=== PATIENT | female | born 1955 | race Caucasian/White ===

== ENCOUNTER → 2016-06-28 | Outpatient (CLI) | payer BC ==
--- NOTE | 2016-06-28 10:16 | CR ---
EXAMINATION: Left knee HISTORY: Pain COMPARISON: 05/17/2016 TECHNIQUE: 2 views FINDINGS/IMPRESSION: There is no acute osseous abnormality, effusion, dislocation, or fracture. Bone mineralization and joint spaces appear normal. Early osteophyte formation is noted.
== END ==
LOC: MW.CHORTHO 07:51
PROVIDERS: ATTEND Physician Assistant
DX: M25.562 Pain in left knee (principal); M25.762 Osteophyte, left knee
CPT/HCPCS: 73560-26-LT; 73560-LT

== ENCOUNTER 2018-10-26 18:06 | Emergency (ER) | payer BC ==
--- NOTE | 2018-10-26 18:26 | EDM.PDOC ---
ED HPI GENERAL MEDICAL PROBLEM - General Chief Complaint: Neurological Problem Stated Complaint: HEAD Time Seen by Provider: 10/26/18 19:01 - History of Present Illness INITIAL COMMENTS - FREE TEXT/NARRATIVE: HISTORY AND PHYSICAL: History of present illness: Patient's a 63-year-old white female with history of meningioma who presents after a outpatient MRI demonstrated interval enlargement with mass effect and near effacement of the fourth ventricle she also downward central herniation of the cerebellar tonsils below the foramen magnum. Patient states this outpatient MRI was prompted by a recent episode on October 11 of headache was relatively severe and lasted approximately 4-5 days she states that has resolved but she does have some mild neck stiffness and discomfort she thought might of been due to exercise but has not had in the past. She's had no neurological symptoms otherwise inform of visual disturbance numbness weakness or other complaints. Review of systems: As per history of present illness and below otherwise all systems reviewed and negative. Past medical history: As per history of present illness and as reviewed below otherwise noncontributory. Surgical history: As per history of present illness and as reviewed below otherwise noncontributory. Social history: No reported history of drug or alcohol abuse. Family history: As per history of present illness and as reviewed below otherwise noncontributory. Physical exam: HEENT: Atraumatic, normocephalic, pupils reactive, negative for conjunctival pallor or scleral icterus, mucous membranes moist, throat clear, neck supple, nontender, trachea midline. Lungs: Clear to auscultation, breath sounds equal bilaterally, chest nontender. Heart: S1S2, regular, negative for clicks, rubs, or JVD. Abdomen: Soft, nondistended, nontender. Negative for masses or hepatosplenomegaly. Negative for costovertebral tenderness. Pelvis: Stable nontender. Genitourinary: Deferred. Rectal: Deferred. Extremities: Atraumatic, negative for cords or calf pain. Neurovascular unremarkable. Neuro: Awake, alert, oriented. Cranial nerves II through XII unremarkable. Cerebellum unremarkable. Motor and sensory unremarkable throughout. Exam nonfocal. Diagnostics: Outpatient MRI Therapeutics: To be determined Impression: #1 extra-axial mass with mass effect and associated cerebellar tonsillar herniation (meningioma) Definitive disposition and diagnosis as appropriate pending reevaluation and review of above. Headache Pain Score (Numeric/FACES): 2 - Related Data Allergies Allergy/AdvReac Type Severity Reaction Status Date / Time No Known Allergies Allergy Verified 10/26/18 18:16 Home Meds: Home Meds . [No Known Home Meds] 05/15/16 [History] Past Medical History - Past Health History Medical/Surgical History: Denies Medical/Surgical History Cardiovascular History: Reports: Other (See Below) Other Cardiovascular History: SVT - Infectious Disease History Infectious Disease History: Reports: Chicken Pox, Measles, Mumps Social & Family History - Family History Family Medical History: Noncontributory ED ROS GENERAL - Review of Systems Review Of Systems: ROS reveals no pertinent complaints other than HPI. ED EXAM, GENERAL - Physical Exam Exam: See Below (See dictation) Course - Vital Signs Text/Narrative:: Case was discussed with [facility] physician Dr. John neurosurgery was also contacted case was discussed with him currently reviewing MRI. Last Recorded V/S: Last Vital Signs Temp 36.9 C 10/26/18 18:12 Pulse 104 H 10/26/18 18:12 Resp 16 10/26/18 18:12 BP 152/76 H 10/26/18 18:12 Pulse Ox 98 10/26/18 18:12 Departure - Departure Time of Disposition: 19:01 Disposition: DC/Tfer to Acute Hospital 02 Condition: Good Clinical Impression: Meningioma, Cephalgia - Discharge Information Referrals: PCP,Unknown [Primary Care Provider] - Forms: ED Department Discharge
[2018-10-26 22:00] VITALS: BP 131/72
== END 2018-10-26 19:19 ==
LOC: MW.ED 18:06
DX: D32.0 Benign neoplasm of cerebral meninges (principal)
CPT/HCPCS: 99284

== ENCOUNTER 2019-02-16 05:34 | Emergency (ER) | payer BC ==
[2019-02-16] MEDS ORDERED: Sodium Chloride 0.9% 10 ML Syringe FLUSH PRN (05:46)
[2019-02-16] MEDS ORDERED: Sodium Chloride 0.9% 2.5 ML Syringe FLUSH PRN (05:46)
[2019-02-16] MEDS ORDERED: Sodium Chloride 0.9% 1,000 ML IV ONE (05:53)
[2019-02-16] MEDS ORDERED: Ketorolac 30 MG/ML SDV IVPUSH ONE (05:53)
--- NOTE | 2019-02-16 05:59 | EDM.PDOC ---
ED HPI GENERAL MEDICAL PROBLEM - General Chief Complaint: Abdominal Pain Stated Complaint: UPPER RT ABD PAIN Time Seen by Provider: 02/16/19 05:45 - History of Present Illness INITIAL COMMENTS - FREE TEXT/NARRATIVE: HISTORY AND PHYSICAL: History of present illness: The patient is a 63-year-old female with a history of A. fib which has resolved and a recent surgery for meningioma and parathyroidectomy for which she says she is doing very well with and presents with complaints of right upper quadrant pain that started last evening. The patient said that she ate apple high and a cookie last evening around 7 and started having the right upper quadrant pain around 10 PM. There was no fever chills nausea or vomiting and there is no radiation of the pain to the right lower quadrant the left side or to the flank. She tells me that she had a similar episode in this pain several weeks ago and it was just as intense. She did not get follow-up because it went away and she says it was in the exact same location and characteristics and occurred after eating fatty food. Yesterday she had a normal day without any systemic complaints or issues such as upper respiratory infection fever chills chest pain or shortness of breath and she has not had diarrhea black or bloody stools and has no history of peptic ulcer disease. She says that she took some Tylenol for the pain only. She rates the pain as a deep sharp pain that is underneath her right ribs. Review of systems: As per history of present illness and below otherwise all systems reviewed and negative. Past medical history: As per history of present illness and as reviewed below otherwise noncontributory. Surgical history: As per history of present illness and as reviewed below otherwise noncontributory. Social history: No reported history of drug or alcohol abuse. Family history: As per history of present illness and as reviewed below otherwise noncontributory. Physical exam: General: Well-developed well-nourished female who is nontoxic and vital signs are noted by me. She is moving easily in the ED without distress HEENT: Atraumatic, normocephalic, negative for conjunctival pallor or scleral icterus, mucous membranes moist, throat clear, neck supple, nontender, trachea midline. There is a scar at the anterior aspect of the base of the neck which is healing and there is no erythema or swelling Lungs: Clear to auscultation, breath sounds equal bilaterally, chest nontender. Heart: S1S2, regular rhythm and slightly tachycardic rate on my evaluation no overt murmurs Abdomen: Soft, nondistended, no sounds are normoactive and there is no tympany on percussion. There is very mild tenderness on deep palpation of the right upper quadrant but not in the epigastrium right flank or left abdomen and there is no right lower quadrant tenderness. Negative for masses or hepatosplenomegaly. Negative for costovertebral tenderness. Pelvis: Stable nontender. Genitourinary: Deferred. Rectal: Deferred. Extremities: Atraumatic, negative for cords or calf pain. Neurovascular unremarkable. Neuro: Awake, alert, oriented. Cranial nerves II through XII unremarkable. Cerebellum unremarkable. Motor and sensory unremarkable throughout. Exam nonfocal. Diagnostics: CBC CMP lactate amylase lipase UA with reflex EKG Therapeutics: IV O2 monitor IV fluids Toradol, patient like to defer narcotics at this time, Rei Discussed with the patient the urine results and she says that she has been told that she always has microscopic blood in her urine and she is not concerned about it. I have offered a CT scan for kidney stone and she says that the pain is only triggered by fatty foods and she would like to decline that at this time. She is aware that if the remainder of her blood work is normal that she can have imaging as an outpatient and she says the pain is improving and that is the plan that she would like to pursue. Impression: Right upper quadrant pain rule out biliary colic Definitive disposition and diagnosis as appropriate pending reevaluation and review of above. Right Upper Abdomen Pain Score (Numeric/FACES): 6 - Related Data Allergies Allergy/AdvReac Type Severity Reaction Status Date / Time No Known Allergies Allergy Verified 02/16/19 05:44 Home Meds: Home Meds . [No Known Home Meds] 05/15/16 [History] Past Medical History - Past Health History Medical/Surgical History: Denies Medical/Surgical History HEENT History: Reports: None Cardiovascular History: Reports: Other (See Below) Other Cardiovascular History: SVT Respiratory History: Reports: None Gastrointestinal History: Reports: None Genitourinary History: Reports: None DYE AND CHEMICAL COORDINATOR History: Reports: None Musculoskeletal History: Reports: None Neurological History: Reports: Other (See Below) Other Neuro History: Hx of meningioma Psychiatric History: Reports: None Endocrine/Metabolic History: Reports: Hyperparathyroidism Hematologic History: Reports: None Immunologic History: Reports: None Oncologic (Cancer) History: Reports: None Dermatologic History: Reports: None - Infectious Disease History Infectious Disease History: Reports: Chicken Pox - Past Surgical History Head Surgeries/Procedures: Reports: Craniotomy HEENT Surgical History: Reports: Adenoidectomy, Oral Surgery, Tonsillectomy Endocrine Surgical History: Reports: Parathyroidectomy Social & Family History - Family History Family Medical History: Noncontributory - Tobacco Use Smoking Status *Q: Never Smoker - Caffeine Use Caffeine Use: Reports: Coffee - Recreational Drug Use Recreational Drug Use: No ED ROS GENERAL - Review of Systems Review Of Systems: ROS reveals no pertinent complaints other than HPI. ED EXAM, GENERAL - Physical Exam Exam: See Below (See dictation) Course - Vital Signs Last Recorded V/S: Last Vital Signs Temp 36.4 C 02/16/19 05:41 Pulse 106 H 02/16/19 05:41 Resp 14 02/16/19 05:41 BP 152/73 H 02/16/19 05:41 Pulse Ox 97 02/16/19 06:05 - Orders/Labs/Meds Orders: Active Orders 24 hr Category Date Time Status Cardiac Monitoring [RC] . DIRECTED Care 02/16/19 05:46 Active EKG Documentation Completion [RC] STAT Care 02/16/19 05:46 Active Oxygen Therapy, ED [RC] ASDIRECTED Care 02/16/19 05:46 Active Pulse Oximetry [RC] ASDIRECTED Care 02/16/19 05:46 Active Sodium Chloride 0.9% [Normal Saline] 1,000 ml Med 02/16/19 05:53 Active IV STAT Sodium Chloride 0.9% [Saline Flush] Med 02/16/19 05:46 Active 10 ml FLUSH ASDIRECTED PRN Sodium Chloride 0.9% [Saline Flush] Med 02/16/19 05:46 Active 2.5 ml FLUSH ASDIRECTED PRN Saline Lock Insert [OM.PC] Stat Oth 02/16/19 05:46 Ordered Medication Orders Sodium Chloride (Normal Saline) 1,000 mls @ 999 mls/hr IV STAT ONE Stop: 02/16/19 06:53 Last Admin: 02/16/19 06:05 Dose: 999 mls/hr Sodium Chloride (Saline Flush) 10 ml FLUSH ASDIRECTED PRN PRN Reason: Keep Vein Open Last Admin: 02/16/19 06:12 Dose: 10 ml Sodium Chloride (Saline Flush) 2.5 ml FLUSH ASDIRECTED PRN PRN Reason: Keep Vein Open Last Admin: 02/16/19 06:12 Dose: 2.5 ml Labs: Laboratory Tests 02/16/19 02/16/19 02/16/19 Range/Units 05:54 06:05 06:05 WBC 7.70 (4.0-11.0) K/uL RBC 4.61 (4.30-5.90) M/uL Hgb 13.2 (12.0-16.0) g/dL Hct 39.4 (36.0-46.0) % MCV 85.5 (80.0-98.0) fL MCH 28.6 (27.0-32.0) pg MCHC 33.5 (31.0-37.0) g/dL RDW Std Deviation 40.0 (28.0-62.0) fl RDW Coeff of Daryn 13 (11.0-15.0) % Plt Count 220 (150-400) K/uL MPV 8.50 (7.40-12.00) fL Neut % (Auto) 81.4 H (48.0-80.0) % Lymph % (Auto) 14.3 L (16.0-40.0) % Stevens % (Auto) 3.5 (0.0-15.0) % Eos % (Auto) 0.5 (0.0-7.0) % Baso % (Auto) 0.3 (0.0-1.5) % Neut # (Auto) 6.3 H (1.4-5.7) K/uL Lymph # (Auto) 1.1 (0.6-2.4) K/uL Stevens # (Auto) 0.3 (0.0-0.8) K/uL Eos # (Auto) 0.0 (0.0-0.7) K/uL Baso # (Auto) 0.0 (0.0-0.1) K/uL Nucleated RBC % 0.0 /100WBC Nucleated RBCs # 0 K/uL Lactate (0.20-2.00) mmol/L Sodium 142 (136-145) mmol/L Potassium 3.8 (3.5-5.1) mmol/L Chloride 106 (98-107) mmol/L Carbon Dioxide 24.5 (21.0-32.0) mmol/L BUN 17 (7.0-18.0) mg/dL Creatinine 0.8 (0.6-1.0) mg/dL Est Cr Clr Drug Dosing 71.81 mL/min Estimated GFR (MDRD) > 60.0 ml/min Glucose 124 H (74-106) mg/dL Calcium 8.6 (8.5-10.1) mg/dL Total Bilirubin 0.3 (0.2-1.0) mg/dL AST 19 (15-37) IU/L ALT 33 (14-63) IU/L Alkaline Phosphatase 75 (46-116) U/L Total Protein 7.2 (6.4-8.2) g/dL Albumin 3.7 (3.4-5.0) g/dL Globulin 3.5 (2.6-4.0) g/dL Albumin/Globulin Ratio 1.1 (0.9-1.6) Amylase 84 (25-115) U/L Lipase 129 (73-393) U/L Urine Color YELLOW Urine Appearance SLT CLOUDY Urine pH 7.0 (5.0-8.0) Ur Specific Moca 1.015 (1.001-1.035) Urine Protein 30 H (NEGATIVE) mg/dL Urine Glucose (UA) NEGATIVE (NEGATIVE) mg/dL Urine Ketones TRACE H (NEGATIVE) mg/dL Urine Occult Blood LARGE H (NEGATIVE) Urine Nitrite NEGATIVE (NEGATIVE) Urine Bilirubin NEGATIVE (NEGATIVE) Urine Urobilinogen 0.2 (<2.0) EU/dL Ur Leukocyte Esterase NEGATIVE (NEGATIVE) Urine RBC 18-21 (0-2/HPF) Urine WBC 0-2 (0-5/HPF) Ur Epithelial Cells OCCASIONAL (NONE-FEW) Urine Bacteria RARE (NEGATIVE) Urine Mucus HEAVY (NONE-MOD) 02/16/19 Range/Units 06:05 WBC (4.0-11.0) K/uL RBC (4.30-5.90) M/uL Hgb (12.0-16.0) g/dL Hct (36.0-46.0) % MCV (80.0-98.0) fL MCH (27.0-32.0) pg MCHC (31.0-37.0) g/dL RDW Std Deviation (28.0-62.0) fl RDW Coeff of Daryn (11.0-15.0) % Plt Count (150-400) K/uL MPV (7.40-12.00) fL Neut % (Auto) (48.0-80.0) % Lymph % (Auto) (16.0-40.0) % Stevens % (Auto) (0.0-15.0) % Eos % (Auto) (0.0-7.0) % Baso % (Auto) (0.0-1.5) % Neut # (Auto) (1.4-5.7) K/uL Lymph # (Auto) (0.6-2.4) K/uL Stevens # (Auto) (0.0-0.8) K/uL Eos # (Auto) (0.0-0.7) K/uL Baso # (Auto) (0.0-0.1) K/uL Nucleated RBC % /100WBC Nucleated RBCs # K/uL Lactate 1.1 (0.20-2.00) mmol/L Sodium (136-145) mmol/L Potassium (3.5-5.1) mmol/L Chloride (98-107) mmol/L Carbon Dioxide (21.0-32.0) mmol/L BUN (7.0-18.0) mg/dL Creatinine (0.6-1.0) mg/dL Est Cr Clr Drug Dosing mL/min Estimated GFR (MDRD) ml/min Glucose (74-106) mg/dL Calcium (8.5-10.1) mg/dL Total Bilirubin (0.2-1.0) mg/dL AST (15-37) IU/L ALT (14-63) IU/L Alkaline Phosphatase (46-116) U/L Total Protein (6.4-8.2) g/dL Albumin (3.4-5.0) g/dL Globulin (2.6-4.0) g/dL Albumin/Globulin Ratio (0.9-1.6) Amylase (25-115) U/L Lipase (73-393) U/L Urine Color Urine Appearance Urine pH (5.0-8.0) Ur Specific Moca (1.001-1.035) Urine Protein (NEGATIVE) mg/dL Urine Glucose (UA) (NEGATIVE) mg/dL Urine Ketones (NEGATIVE) mg/dL Urine Occult Blood (NEGATIVE) Urine Nitrite (NEGATIVE) Urine Bilirubin (NEGATIVE) Urine Urobilinogen (<2.0) EU/dL Ur Leukocyte Esterase (NEGATIVE) Urine RBC (0-2/HPF) Urine WBC (0-5/HPF) Ur Epithelial Cells (NONE-FEW) Urine Bacteria (NEGATIVE) Urine Mucus (NONE-MOD) Meds: Medications Generic Name Dose Route Start Last Admin Trade Name Freq PRN Reason Stop Dose Admin Sodium Chloride 1,000 mls @ 999 mls/hr 02/16/19 05:53 02/16/19 06:05 Normal Saline IV 02/16/19 06:53 999 mls/hr STAT ONE Administration Sodium Chloride 10 ml 02/16/19 05:46 02/16/19 06:12 Saline Flush FLUSH 10 ml ASDIRECTED PRN Administration Keep Vein Open Sodium Chloride 2.5 ml 02/16/19 05:46 02/16/19 06:12 Saline Flush FLUSH 2.5 ml ASDIRECTED PRN Administration Keep Vein Open Discontinued Medications Generic Name Dose Route Start Last Admin Trade Name Freq PRN Reason Stop Dose Admin Hyoscyamine 0.125 mg 02/16/19 06:43 Hyomax-Sl SL 02/16/19 06:44 ONETIME ONE Ketorolac Tromethamine 30 mg 02/16/19 05:53 02/16/19 06:10 Toradol IVPUSH 02/16/19 05:54 30 mg ONETIME ONE Administration Departure - Departure Time of Disposition: 06:45 Disposition: Home, Self-Care 01 Condition: Good Clinical Impression: Abdominal pain Qualifiers: Abdominal location: right upper quadrant Qualified Code(s): R10.11 - Right upper quadrant pain - Discharge Information Referrals: PCP,None [Primary Care Provider] - Forms: ED Department Discharge Additional Instructions: The following information is given to patients seen in the emergency department who are being discharged to home. This information is to outline your options for follow-up care. We provide all patients seen in our emergency department with a follow-up referral. The need for follow-up, as well as the timing and circumstances, are variable depending upon the specifics of your emergency department visit. If you don't have a primary care physician on staff, we will provide you with a referral. We always advise you to contact your personal physician following an emergency department visit to inform them of the circumstance of the visit and for follow-up with them and/or the need for any referrals to a consulting specialist. The emergency department will also refer you to a specialist when appropriate. This referral assures that you have the opportunity for followup care with a specialist. All of these measure are taken in an effort to provide you with optimal care, which includes your followup. Under all circumstances we always encourage you to contact your private physician who remains a resource for coordinating your care. When calling for followup care, please make the office aware that this follow-up is from your recent emergency room visit. If for any reason you are refused follow-up, please contact the [facility] emergency department at and ask to speak to the emergency department charge nurse. [facility] Professional Building [address] [place] [address] Please eat a low-fat diet as we discussed and use medications as prescribed and as needed. These call and schedule a follow-up appointment for further testing of your gallbladder as we discussed and return to ER as needed and as discussed - My Orders Last 24 Hours: My Active Orders 02/16/19 05:46 Cardiac Monitoring [RC] . DIRECTED EKG Documentation Completion [RC] STAT Oxygen Therapy, ED [RC] ASDIRECTED Pulse Oximetry [RC] ASDIRECTED Sodium Chloride 0.9% [Saline Flush] 10 ml FLUSH ASDIRECTED PRN Sodium Chloride 0.9% [Saline Flush] 2.5 ml FLUSH ASDIRECTED PRN Saline Lock Insert [OM.PC] Stat 02/16/19 05:53 Sodium Chloride 0.9% [Normal Saline] 1,000 ml IV STAT - Assessment/Plan Last 24 Hours: My Active Orders 02/16/19 05:46 Cardiac Monitoring [RC] . DIRECTED EKG Documentation Completion [RC] STAT Oxygen Therapy, ED [RC] ASDIRECTED Pulse Oximetry [RC] ASDIRECTED Sodium Chloride 0.9% [Saline Flush] 10 ml FLUSH ASDIRECTED PRN Sodium Chloride 0.9% [Saline Flush] 2.5 ml FLUSH ASDIRECTED PRN Saline Lock Insert [OM.PC] Stat 02/16/19 05:53 Sodium Chloride 0.9% [Normal Saline] 1,000 ml IV STAT
[2019-02-16 06:40] LABS: BLOOD UREA NITROGEN,BUN 17 mg/dL (7.0-18.0); CARBON DIOXIDE,CO2 24.5 mmol/L (21.0-32.0); CHLORIDE,CL 106 mmol/L (98-107); GLUCOSE RANDOM 124 mg/dL (74-106); LIPASE 129 U/L (73-393); POTASSIUM,K 3.8 mmol/L (3.5-5.1); SODIUM,NA 142 mmol/L (136-145)
[2019-02-16] MEDS ORDERED: Hyoscyamine 0.125 MG Tab.SL SL ONE (06:43)
[2019-02-16 07:33] VITALS: BP 118/63; PULSE 85
== END 2019-02-16 07:17 | disposition home or self-care (01) ==
LOC: MW.ED 05:34
DX: R10.11 Right upper quadrant pain (principal)
CPT/HCPCS: 36415; 80053; 81001; 82150; 83605; 83690; 85025; 93005; 96361; 96374; 99284; A9270; J1885; J7040

== ENCOUNTER 2019-04-04 08:12 | Day surgery (SDC) | payer BC ==
[~2019-04-04 08:12] MED LIST: Dexamethasone 4 MG/ML 5 ML MDV ONE; Lidocaine 2% 5 ML SDV ONE; Meperidine PF 25 MG/ML Syringe IVPUSH PRN; Metoclopramide 10 MG/2 ML SDV ONE; Midazolam 1 MG/ML 2 ML SDV ONE; Propofol 200 MG/20 ML SDV ONE; Rocuronium 100 MG/10 ML Syringe ONE; ceFAZolin 2 GM in Premix Bag 1 BAG IV ONE; ceFAZolin/Dextrose,Iso-Osmotic 2 GM/50 ML Duplex Bag IV ONE; fentaNYL 100 MCG/2 ML SDV IVPUSH PRN; fentaNYL 100 MCG/2 ML SDV ONE
[2019-04-04] MEDS: Lactated Ringers 1,000 ML IV SCH (08:45)
--- NOTE | 2019-04-04 09:01 | PCM.PREANE ---
Preanesthetic Assessment - Anesthesia/Transfusion/Family Hx Anesthesia History: Prior Anesthesia Without Reaction Family History of Anesthesia Reaction: No Transfusion History: No Prior Transfusion(s) Intubation History: Unknown - Review of Systems General: No Symptoms Pulmonary: No Symptoms Cardiovascular: No Symptoms Gastrointestinal: No Symptoms Neurological: No Symptoms Other: Reports: None - Physical Assessment Vital Signs: Last Vital Signs Temp 36.8 C 04/04/19 08:30 Pulse 15 L 04/04/19 08:30 Resp 15 04/04/19 08:30 BP 144/66 H 04/04/19 08:30 Pulse Ox 97 04/04/19 08:30 Height: 5 ft 6 in Weight: 78.471 kg ASA Class: 3 Mental Status: Alert & Oriented x3 Airway Class: Mallampati = 2 Dentition: Reports: Normal Dentition Thyro-Mental Finger Breadths: 3 Mouth Opening Finger Breadths: 2 ROM/Head Extension: Full Lungs: Clear to Auscultation, Normal Respiratory Effort Cardiovascular: Regular Rate, Regular Rhythm - Lab Values: Laboratory Last Values Urine HCG, Qual NEGATIVE (NEGATIVE) 04/04/19 08:23 - Allergies Allergies/Adverse Reactions: Allergies Allergy/AdvReac Type Severity Reaction Status Date / Time No Known Allergies Allergy Verified 03/25/19 07:07 - Blood Blood Available: No - Anesthesia Plan Pre-Op Medication Ordered: None - Acknowledgements Anesthesia Type Planned: General Anesthesia Pt an Appropriate Candidate for the Planned Anesthesia: Yes Alternatives and Risks of Anesthesia Discussed w Pt/Guardian: Yes Pt/Guardian Understands and Agrees with Anesthesia Plan: Yes PreAnesthesia Questionnaire - Past Health History Medical/Surgical History: Denies Medical/Surgical History HEENT History: Reports: Other (See Below) Other HEENT History: wears glasses Cardiovascular History: Reports: Other (See Below) Other Cardiovascular History: hx proximal A-fib, resolved after parathyroidectomy. H/o meningeoma Respiratory History: Reports: None Gastrointestinal History: Reports: Cholelithiasis Genitourinary History: Reports: None MARINE SUPERINTENDENT History: Reports: None Musculoskeletal History: Reports: Fracture Other Musculoskeletal History: hx fx tib/fib Neurological History: Reports: Headaches, Chronic (temporal), Other (See Below) Other Neuro History: Hx of meningioma Psychiatric History: Reports: Bipolar Endocrine/Metabolic History: Reports: Hyperparathyroidism (2 out of 5 parathyroid glands removed 2 months ago) Hematologic History: Reports: None Immunologic History: Reports: None Oncologic (Cancer) History: Reports: None Dermatologic History: Reports: None - Infectious Disease History Infectious Disease History: Reports: Chicken Pox - Past Surgical History Head Surgeries/Procedures: Reports: Craniotomy (for removal of meningeoma 09/26) HEENT Surgical History: Reports: Adenoidectomy, Oral Surgery, Tonsillectomy Cardiovascular Surgical History: Reports: None Respiratory Surgical History: Reports: None GI Surgical History: Reports: Colonoscopy Female Surgical History: Reports: None Endocrine Surgical History: Reports: Parathyroidectomy (2 glands removed) Other Neurological Surgeries/Procedures: craniotomy for meninigioma Musculoskeletal Surgical History: Reports: None Dermatological Surgical History: Reports: None - SUBSTANCE USE Smoking Status *Q: Never Smoker Recreational Drug Use History: No - HOME MEDS Home Medications: Home Meds Calcium Carbonate/Vitamin D3 [Calcium 600 + Vit D Tablet] 1 tab PO BID 03/25/19 [History] Cyanocobalamin (Vitamin B12) [Vitamin B12] 1 tab PO DAILY 03/25/19 [History] Estazolam 0.5 tab PO BEDTIME PRN 03/25/19 [History] Hyoscyamine Sulfate 0.125 mg PO ASDIRECTED PRN 03/25/19 [History] traMADol HCl [Tramadol HCl] 1 tab PO ASDIRECTED PRN 03/25/19 [History] - CURRENT (IN HOUSE) MEDS Current Meds: Current Medications Fentanyl (Sublimaze) 50 mcg IVPUSH Q5M PRN PRN Reason: Pain Stop: 04/04/19 12:05 Lactated Ringer's (Ringers, Lactated) 1,000 mls @ 125 mls/hr IV ASDIRECTED CHRISTELLE Meperidine HCl (Demerol) 12.5 mg IVPUSH ONETIME PRN PRN Reason: Shivering Meperidine HCl (Demerol) 25 mg IVPUSH ONETIME PRN PRN Reason: Shivering Discontinued Medications Cefazolin Sodium/Dextrose (Ancef) Confirm Administered Dose 2 gm IV .STK-MED ONE Stop: 04/04/19 08:04 Dexamethasone (Dexamethasone) Confirm Administered Dose 20 mg .ROUTE .STK-MED ONE Stop: 04/04/19 07:39 Fentanyl (Sublimaze) Confirm Administered Dose 100 mcg .ROUTE .STK-MED ONE Stop: 04/04/19 07:39 Cefazolin Sodium/Dextrose 2 gm (/ Premix) 50 mls @ 100 mls/hr IV ONETIME ONE Stop: 03/25/19 09:58 Cefazolin Sodium/Dextrose 2 gm (/ Premix) 50 mls @ 100 mls/hr IV ONETIME ONE Stop: 04/02/19 11:05 Lidocaine (Xylocaine-Mpf 2%) Confirm Administered Dose 5 ml .ROUTE .STK-MED ONE Stop: 04/04/19 07:39 Metoclopramide HCl (Reglan) Confirm Administered Dose 10 mg .ROUTE .STK-MED ONE Stop: 04/04/19 07:39 Midazolam HCl (Versed 1 Mg/Ml) Confirm Administered Dose 2 mg .ROUTE .STK-MED ONE Stop: 04/04/19 07:39 Propofol (Diprivan 20 Ml) Confirm Administered Dose 200 mg .ROUTE .STK-MED ONE Stop: 04/04/19 07:39 Rocuronium [place] (Zemuron) Confirm Administered Dose 100 mg .ROUTE .STK-MED ONE Stop: 04/04/19 07:39
[2019-04-04] MEDS ORDERED: Bupivacaine 0.5% 30 ML SDV ONE (09:23)
[2019-04-04] MEDS ORDERED: HYDROmorphone 2 MG/ML Syringe ONE (10:00)
[2019-04-04] MEDS ORDERED: Neostigmine Methylsulfate 1 MG/ML 5 ML Syringe ONE (10:12)
[2019-04-04] MEDS ORDERED: Glycopyrrolate 0.2 MG/ML SDV ONE (10:12)
[2019-04-04] MEDS ORDERED: Ondansetron 4 MG/2 ML SDV ONE (10:12)
[2019-04-04] MEDS ORDERED: Ketorolac 30 MG/ML SDV ONE (10:39)
--- NOTE | 2019-04-04 11:06 | PCM.OPNOTE ---
- General Post-Op/Procedure Note Date of Surgery/Procedure: 04/04/19 Operative Procedure(s): Laparoscopic cholecystectomy Findings: Mildly distended gallbladder with some scant omental adhesions Pre Op Diagnosis: Symptomatic cholelithiasis Post-Op Diagnosis: Symptomatic cholelithiasis Anesthesia Technique: MAC Primary Surgeon: Maya Gutierres Fluid Replacement, Intraop: 1,000 Output, Urine Amount: 170 EBL in mLs: 10 Condition: Good
--- NOTE | 2019-04-04 11:24 | PCM.POSTAN ---
POST ANESTHESIA ASSESSMENT - MENTAL STATUS Mental Status: Alert, Oriented - VITAL SIGNS Vital Signs: Last Vital Signs Temp 36.3 C 04/04/19 11:01 Pulse 59 L 04/04/19 11:21 Resp 11 L 04/04/19 11:21 BP 127/63 04/04/19 11:21 Pulse Ox 93 L 04/04/19 11:21 - RESPIRATORY Respiratory Status: Respiratory Rate WNL, Airway Patent, O2 Saturation Stable - CARDIOVASCULAR CV Status: Pulse Rate WNL, Blood Pressure Stable - GASTROINTESTINAL GI Status: No Symptoms - PAIN Pain Score: 0 - POST OP HYDRATION Hydration Status: Adequate & Stable - OBSERVATIONS Free Text/Narrative:: No anesthesia problems
--- NOTE | 2019-04-04 11:54 | OR ---
SURGEON: MAYA GUTIERRES MD DATE OF PROCEDURE: 04/04/2019 PREOPERATIVE DIAGNOSIS: Symptomatic cholelithiasis. POSTOPERATIVE DIAGNOSIS: Symptomatic cholelithiasis. PROCEDURE PERFORMED: Laparoscopic cholecystectomy. PRIMARY SURGEON: Maya Gutierres MD. ANESTHESIA: General endotracheal anesthesia. FLUIDS: 1000 mL of crystalloid. ESTIMATED BLOOD LOSS: 10 mL. URINE OUTPUT: 170 mL. FINDINGS: A slightly distended gallbladder with a small amount of omental adhesions. COMPLICATIONS: None. INDICATIONS: The patient is a 63-year-old female who recently presented to my office with symptomatic cholelithiasis. I explained the need for cholecystectomy. We discussed the laparoscopic approach. Should I be unable to perform it safely, we would convert to open. I explained the risks including bleeding, infection, or damage to surrounding structures. She verbalized understanding and wishes to proceed. PROCEDURE IN DETAIL: The patient was brought into the OR and placed on the OR table in supine position. A time-out was completed verifying the patient's name, age, date of , allergies, and procedure to be performed. General endotracheal anesthesia was induced. A Peralta catheter was placed and the left arm was tucked to the patient's side. The patient was appropriately padded and strapped to the table. The abdomen was prepped and draped in usual standard fashion. I anesthetized the infraumbilical midline with 0.5% Marcaine plain. An 11 blade was used to make a 3 cm incision along this area. Cautery was used to dissect down to the level of the subcutaneous fat. I bluntly dissected down to the fascia and elevated with Galina's. I incised this sharply with Metzenbaum scissors. The posterior fascia and peritoneum were elevated with hemostats and incised sharply again. Entry into the abdomen was palpated digitally. Stay sutures were placed on either side of the fascia using 0 Vicryl sutures. A 12 mm Gene trocar was placed in the abdomen and it was insufflated. A 5 mm 30- degree scope was inserted, and I inspected the area underneath my initial trocar placement. No damage to surrounding structures was noted. The patient was placed into reverse Trendelenburg position and airplaned slightly to the left. 5 mm trocars were placed in the following locations under direct visualization; one in the epigastric area, one in the right flank, and one 2 fingerbreadths below the right subcostal margin in the midclavicular line. The dome of the gallbladder was grasped and elevated cranially. The infundibulum had some flimsy attachments to the overlying omentum. This was taken down using hook cautery. The infundibulum then was grasped and manipulated to begin dissection around my proximal gallbladder. Using a combination of blunt dissection and hook cautery, I was able to take down the tissue around the proximal gallbladder and identify my cystic duct and artery. The node of Calot was also identified. I cleared away one-third of the proximal cystic plate. Once my critical view was achieved, I doubly clipped and ligated the cystic duct and artery. The attachments of the gallbladder to the remainder of the cystic plate were taken down using hook cautery. A small rent was made in the gallbladder and bile was spilled in the abdomen. No stones appeared to come out. Once the gallbladder was removed from this area, it was placed in an Endo Catch bag and removed through the infraumbilical port site. My 12 mm port was then reinserted, and I inspected my operative field. It was irrigated with 1 L of normal saline, which was then suctioned out. The clips appeared to be in good position. Hemostasis was achieved and there was no evidence of any bile leakage. The 5 mm trocars were then removed under direct visualization and the abdomen allowed to desufflate. The 12 mm trocar was removed as well. The fascia at the infraumbilical port site was closed with interrupted 0 Vicryl sutures. The subcutaneous fat layer was closed with interrupted 3-0 Vicryl sutures. The skin was closed with a running 4-0 Monocryl stitch. The 5 mm trocar sites were closed with interrupted 4-0 Monocryl suture. Steri-Strips and sterile dressings were applied. The patient tolerated the procedure well and was taken to PACU in stable condition. All counts were complete and correct at the end of the case. DIPIKA BREWER /[id number]
[2019-04-04 12:44] VITALS: BP 113/57; PULSE 64
--- NOTE | 2019-04-04 12:54 | PCM48HPAN ---
Post Anesthesia Note - EVALUATION WITHIN 48HRS OF ANESTHETIC Vital Signs in Normal Range: Yes Patient Participated in Evaluation: Yes Respiratory Function Stable: Yes Airway Patent: Yes Cardiovascular Function Stable: Yes Hydration Status Stable: Yes Pain Control Satisfactory: Yes Nausea and Vomiting Control Satisfactory: Yes Mental Status Recovered: Yes Vital Signs: Last Vital Signs Temp 35.9 C 04/04/19 11:30 Pulse 64 04/04/19 12:30 Resp 16 04/04/19 12:30 BP 113/57 L 04/04/19 12:30 Pulse Ox 94 L 04/04/19 12:30 - COMMENTS/OBSERVATIONS Free Text/Narrative:: No anesthesia problems
== END 2019-04-04 13:22 | disposition home or self-care (01) ==
LOC: MW.SDS 08:12
PROVIDERS: ATTEND Surgery
DX: K80.10 Calculus of gallbladder with chronic cholecystitis without obstruction (principal); K66.0 Peritoneal adhesions (postprocedural) (postinfection); F31.9 Bipolar disorder, unspecified; E78.00 Pure hypercholesterolemia, unspecified; E21.3 Hyperparathyroidism, unspecified; I48.0 Paroxysmal atrial fibrillation; Z79.899 Other long term (current) drug therapy
CPT/HCPCS: 81025; J0690; J1100; J1170; J1885; J2001; J2250; J2405; J2704; J2765; J3010; J3490; J7120

== ENCOUNTER 2019-12-30 14:42 | Inpatient (IN) | payer BC ==
[2019-12-30] MEDS ORDERED: Sodium Chloride 0.9% 2.5 ML Syringe FLUSH PRN (16:16)
[2019-12-30] MEDS ORDERED: Morphine 2 MG/ML SYRINGE IVPUSH PRN (16:16)
[2019-12-30] MEDS ORDERED: Sodium Chloride 0.9% 1,000 ML IV ONE ×2 (16:52→16:53)
--- NOTE | 2019-12-30 16:56 | PCM.HP.2 ---
H&P History of Present Illness - General Date of Service: 12/30/19 Admit Problem/Dx: Admission Diagnosis/Problem Admission Diagnosis/Problem Diverticulitis of intestine with abscess - History of Present Illness Initial Comments - Free Text/Narative: Patient is a 64 year old female with PMH of paroxysmal Afib who presented to her PCP office today with abdominal pain. current to the patient, she started developing abdominal discomfort and constipation around December 20. She tried OTC laxatives with no results initially but later she developed watery diarrhea which she attributed to laxative use. Patient states that on Monday she started feeling febrile and her abdominal pain started getting worse. so today she went to her primary care office where she got the CAT scan of her abdomen/ pelvis which showed thickening of the sigmoid colon with an intracolonic abscess. She has had a colonoscopy in the past but is due for one next year. She denies nausea and vomiting. She had COVID testing this morning which was negative. Her CBC showed a leukocytosis with a left shift, she was slightly tachycardic, la ctic acid was obtained in the clinic which was negative. The pressure was on the softer side which per patient is here normal. She was admitted to the Hospital for further management. - Related Data Allergies/Adverse Reactions: Allergies Allergy/AdvReac Type Severity Reaction Status Date / Time No Known Allergies Allergy Verified 03/25/19 07:07 Home Medications: Home Meds Calcium Carbonate/Vitamin D3 [Calcium 600 + Vit D Tablet] 1 tab PO BID 03/25/19 [History] Cyanocobalamin (Vitamin B12) [Vitamin B12] 1 tab PO DAILY 03/25/19 [History] Estazolam 0.5 tab PO BEDTIME PRN 03/25/19 [History] Hyoscyamine Sulfate 0.125 mg PO ASDIRECTED PRN 03/25/19 [History] traMADol HCl [Tramadol HCl] 1 tab PO ASDIRECTED PRN 03/25/19 [History] Past Medical History - Past Health History Medical/Surgical History: Denies Medical/Surgical History HEENT History: Reports: Other (See Below) Other HEENT History: wears glasses Cardiovascular History: Reports: Other (See Below) Other Cardiovascular History: hx proximal A-fib, resolved after parathyroidectomy. H/o meningeoma Respiratory History: Reports: None Gastrointestinal History: Reports: Cholelithiasis Genitourinary History: Reports: None UNDERPRESSER HAND History: Reports: None Musculoskeletal History: Reports: Fracture Other Musculoskeletal History: hx fx tib/fib Neurological History: Reports: Headaches, Chronic, Other (See Below) Other Neuro History: Hx of meningioma Psychiatric History: Reports: Bipolar Endocrine/Metabolic History: Reports: Hyperparathyroidism Hematologic History: Reports: None Immunologic History: Reports: None Oncologic (Cancer) History: Reports: None Dermatologic History: Reports: None - Infectious Disease History Infectious Disease History: Reports: Chicken Pox - Past Surgical History Head Surgeries/Procedures: Reports: Craniotomy HEENT Surgical History: Reports: Adenoidectomy, Oral Surgery, Tonsillectomy Cardiovascular Surgical History: Reports: None Respiratory Surgical History: Reports: None GI Surgical History: Reports: Colonoscopy Female Surgical History: Reports: None Endocrine Surgical History: Reports: Parathyroidectomy Other Neurological Surgeries/Procedures: craniotomy for meninigioma Musculoskeletal Surgical History: Reports: None Dermatological Surgical History: Reports: None Social & Family History - Family History Family Medical History: Noncontributory - Caffeine Use Caffeine Use: Reports: Coffee H&P Review of Systems - Review of Systems: Review Of Systems: See Below General: Reports: Fever, Malaise, Weakness, Fatigue Pulmonary: Denies: Shortness of Breath, Wheezing, Pleuritic Chest Pain Cardiovascular: Denies: Chest Pain, Palpitations, Dyspnea on Exertion, Orthopnea Gastrointestinal: Reports: Abdominal Pain, Anorexia, Constipation, Decreased Appetite, Nausea. Denies: Bloody Stool, Vomiting Genitourinary: Denies: Dysuria, Frequency, Burning, Pain Musculoskeletal: Denies: Neck Pain, Shoulder Pain, Arm Pain, Back Pain Skin: Denies: Cyanosis, Jaundice, Mottled, Pallor Psychiatric: Denies: Confusion, Depression Neurological: Denies: Confusion, Dizziness Hematologic/Lymphatic: Denies: Anemia, Easy Bleeding Exam - Exam Exam: See Below - Exam General: Alert, Oriented Neck: Supple, Trachea Midline Lungs: Clear to Auscultation, Normal Respiratory Effort Cardiovascular: Normal S1, Normal S2, Irregular Rhythm, Tachycardia GI/Abdominal Exam: Normal Bowel Sounds, Soft, No Distention, No Mass, Tender - Patient Data Lab Results Last 24 hrs: Laboratory Results - last 24 hr 12/30/19 Range/Units 12:56 WBC 14.60 H (4.0-11.0) K/uL RBC 4.43 (4.30-5.90) M/uL Hgb 12.8 (12.0-16.0) g/dL Hct 39.1 (36.0-46.0) % MCV 88.3 (80.0-98.0) fL MCH 28.9 (27.0-32.0) pg MCHC 32.7 (31.0-37.0) g/dL RDW Std Deviation 40.2 (28.0-62.0) fl RDW Coeff of Daryn 13 (11.0-15.0) % Plt Count 415 H (150-400) K/uL MPV 8.70 (7.40-12.00) fL Neut % (Auto) 83.5 H (48.0-80.0) % Lymph % (Auto) 8.3 L (16.0-40.0) % [place] % (Auto) 7.9 (0.0-15.0) % Eos % (Auto) 0.1 (0.0-7.0) % Baso % (Auto) 0.2 (0.0-1.5) % Neut # (Auto) 12.2 H (1.4-5.7) K/uL Lymph # (Auto) 1.2 (0.6-2.4) K/uL [place] # (Auto) 1.2 H (0.0-0.8) K/uL Eos # (Auto) 0.0 (0.0-0.7) K/uL Baso # (Auto) 0.0 (0.0-0.1) K/uL Nucleated RBC % 0.0 /100WBC Nucleated RBCs # 0 K/uL Result Diagrams: 12/30/19 12:56 - Problem List (1) Afib SNOMED Code(s): 16261130 ICD Code: I48.91 - UNSPECIFIED ATRIAL FIBRILLATION Status: Acute Current Visit: Yes (2) Diverticulitis SNOMED Code(s): 337377059 ICD Code: K57.92 - DVTRCLI OF INTEST, PART UNSP, W/O PERF OR ABSCESS W/O BLEED Status: Acute Current Visit: Yes (3) Abdominal pain SNOMED Code(s): 31284995 ICD Code: R10.9 - UNSPECIFIED ABDOMINAL PAIN Status: Acute Current Visit: No Qualifiers: Abdominal location: right upper quadrant Qualified Code(s): R10.11 - Right upper quadrant pain Problem List Initiated/Reviewed/Updated: Yes Orders Last 24hrs: Active Orders 24 hr Category Date Time Status Patient Status [ADT] Routine ADT 12/30/19 16:16 Active Antiembolic Devices [RC] PER UNIT ROUTINE Care 12/30/19 16:17 Active Communication Order [RC] PER UNIT ROUTINE Care 12/30/19 16:19 Active EKG 12 Lead [EKG Documentation Completion] [RC] STAT Care 12/30/19 16:52 Active Intake and Output [RC] QSHIFT Care 12/30/19 16:17 Active Notify Provider Consults [RC] ASDIRECTED Care 12/30/19 16:18 Active Oxygen Therapy [RC] PRN Care 12/30/19 16:16 Active Telemetry Monitoring [Cardiac Monitoring] [RC] . Care 12/30/19 16:20 Active DIRECTED Up With Assistance [RC] ASDIRECTED Care 12/30/19 16:16 Active VTE/DVT Education [RC] PER UNIT ROUTINE Care 12/30/19 16:16 Active Vital Signs [RC] Q4H Care 12/30/19 16:16 Active Consult to Physician [CONS] Routine Cons 12/30/19 16:16 Active Nothing Per Oral Diet [DIET] Diet 12/31/19 Breakfast Active CBC WITH AUTO DIFF [HEME] AM Lab 12/31/19 05:11 Ordered CBC WITH AUTO DIFF [HEME] AM Lab 01/01/20 05:11 Ordered COMPREHENSIVE METABOLIC PN,CMP [CHEM] AM Lab 12/31/19 05:11 Ordered COMPREHENSIVE METABOLIC PN,CMP [CHEM] AM Lab 01/01/20 05:11 Ordered CULTURE BLOOD [BC] Stat Lab 12/30/19 16:18 Ordered CULTURE BLOOD [BC] Stat Lab 12/30/19 16:18 Ordered TROPONIN I [CHEM] Routine Lab 12/30/19 16:54 Ordered Morphine Med 12/30/19 16:16 Active 2 mg IVPUSH Q2H PRN Ondansetron [Zofran] Med 12/30/19 16:16 Active 4 mg IVPUSH Q4H PRN Piperacillin/Tazobactam [Piperacil-Tazobact] 4.5 gm Med 12/30/19 16:30 Active Sodium Chloride 0.9% [Normal Saline] 100 ml IV Q6H Sodium Chloride 0.9% [Normal Saline] 1,000 ml Med 12/30/19 16:52 Ordered IV .Bolus Sodium Chloride 0.9% [Normal Saline] 1,000 ml Med 12/30/19 16:30 Active IV Q8H Sodium Chloride 0.9% [Saline Flush] Med 12/30/19 16:16 Active 2.5 ml FLUSH ASDIRECTED PRN Blood Culture x2 Reflex Set [OM.PC] Stat Ot 12/30/19 16:16 Ordered Saline Lock Insert [OM.PC] Routine Oth 12/30/19 16:16 Ordered Sequential Compression Device [OM.PC] Per Unit Routine Oth 12/30/19 16:17 Ordered Resuscitation Status Routine Resus Stat 12/30/19 16:16 Ordered Medication Orders Sodium Chloride (Normal Saline) 1,000 mls @ 125 mls/hr IV Q8H CHRISTELLE Piperacillin Sod/Tazobactam (Sod 4.5 gm/ Sodium Chloride) 100 mls @ 100 mls/hr IV Q6H CHRISTELLE Sodium Chloride (Normal Saline) 1,000 mls @ 999 mls/hr IV .Bolus ONE Stop: 12/30/19 17:52 Morphine Sulfate (Morphine) 2 mg IVPUSH Q2H PRN PRN Reason: Pain (severe 7-10) Stop: 12/31/19 16:17 Ondansetron HCl (Zofran) 4 mg IVPUSH Q4H PRN PRN Reason: Pain Sodium Chloride (Saline Flush) 2.5 ml FLUSH ASDIRECTED PRN PRN Reason: Keep Vein Open Assessment/Plan Comment:: Patient is a 64-year-old female admitted for intracolonic abscess Start patient on IV Zosyn keep patient nothing by mouth except ice chips pain control with IV morphine Obtain blood cultures Plan CBC BMP monitor replete electrolytes as needed patient was found to be in A. fib upon placing her on telemetry which resolved with IV fluid bolus Will check a magnesium and phosphorus will continue to monitor surgery on board, appreciate their recommendations
[2019-12-30] MEDS: Piperacillin/Tazobactam 4.5 GM in Sodium Chloride 0.9% 100 ML IV SCH ×2 (17:31→22:38)
--- NOTE | 2019-12-30 17:40 | PCM.CONS ---
H&P History of Present Illness - General Date of Service: 12/30/19 Admit Problem/Dx: Admission Diagnosis/Problem Admission Diagnosis/Problem Diverticulitis of intestine with abscess Source of Information: Patient History Limitations: Reports: No Limitations - History of Present Illness Initial Comments - Free Text/Narative: Patient is a 64 year old female who presented to her PCP office today with abdominal pain. She first developed abdominal pain and constipation on December 20. She tried OTC laxatives with no results. Eventually she developed watery diarrhea. Last Monday she developed a fever and increasing abdominal pain. She has had a colonoscopy in the past but is due for one next year. She denies nausea and vomiting. She had COVID testing this morning which was negative. Her CBC showed a leukocytosis with a left shift. CT abdomen pelvis showed thickening of the sigmoid colon with an intracolonic abscess. She was admitted to the hospitalists service. - Related Data Allergies/Adverse Reactions: Allergies Allergy/AdvReac Type Severity Reaction Status Date / Time No Known Allergies Allergy Verified 03/25/19 07:07 Home Medications: Home Meds Calcium Carbonate/Vitamin D3 [Calcium 600 + Vit D Tablet] 1 tab PO BID 03/25/19 [History] Cyanocobalamin (Vitamin B12) [Vitamin B12] 1 tab PO DAILY 03/25/19 [History] Estazolam 0.5 tab PO BEDTIME PRN 03/25/19 [History] Hyoscyamine Sulfate 0.125 mg PO ASDIRECTED PRN 03/25/19 [History] traMADol HCl [Tramadol HCl] 1 tab PO ASDIRECTED PRN 03/25/19 [History] Past Medical History - Past Health History Medical/Surgical History: Denies Medical/Surgical History HEENT History: Reports: Other (See Below) Other HEENT History: wears glasses Cardiovascular History: Reports: Other (See Below) Other Cardiovascular History: hx proximal A-fib, resolved after parathyroidecto my. H/o meningeoma Respiratory History: Reports: None Gastrointestinal History: Reports: Cholelithiasis Genitourinary History: Reports: None METER REPAIRER History: Reports: None Musculoskeletal History: Reports: Fracture Other Musculoskeletal History: hx fx tib/fib Neurological History: Reports: Headaches, Chronic, Other (See Below) Other Neuro History: Hx of meningioma Psychiatric History: Reports: Bipolar Endocrine/Metabolic History: Reports: Hyperparathyroidism Hematologic History: Reports: None Immunologic History: Reports: None Oncologic (Cancer) History: Reports: None Dermatologic History: Reports: None - Infectious Disease History Infectious Disease History: Reports: Chicken Pox - Past Surgical History Head Surgeries/Procedures: Reports: Craniotomy HEENT Surgical History: Reports: Adenoidectomy, Oral Surgery, Tonsillectomy Cardiovascular Surgical History: Reports: None Respiratory Surgical History: Reports: None GI Surgical History: Reports: Colonoscopy Female Surgical History: Reports: None Endocrine Surgical History: Reports: Parathyroidectomy Other Neurological Surgeries/Procedures: craniotomy for meninigioma Musculoskeletal Surgical History: Reports: None Dermatological Surgical History: Reports: None Social & Family History - Family History Family Medical History: Noncontributory - Caffeine Use Caffeine Use: Reports: Coffee H&P Review of Systems - Review of Systems: Review Of Systems: Comprehensive ROS is negative, except as noted in HPI. Exam - Exam Exam: See Below - Vital Signs Vital Signs: Last Vital Signs Temp 37.2 C 12/30/19 17:00 Pulse 101 H 12/30/19 17:00 Resp 16 12/30/19 17:00 BP 104/63 12/30/19 17:00 Pulse Ox 98 12/30/19 17:00 Weight: 77.02 kg - Exam General: Alert, Oriented HEENT: Conjunctiva Clear, Mucosa Moist & [place], Posterior Pharynx Clear Neck: Trachea Midline Lungs: Clear to Auscultation, Normal Respiratory Effort Cardiovascular: Irregular Rhythm (atrial fibrillation ) GI/Abdominal Exam: Soft, No Distention, No Mass, Other (mild tenderness to deep palpation in the left lower quardrant/suprapubic area ) Back Exam: Normal Inspection, Full Range of Motion Extremities: Normal Inspection Skin: Warm, Dry, Intact Neuro Extensive - Mental Status: Alert, Oriented x3 Psychiatric: Alert, Normal Affect, Normal Mood - Patient Data Lab Results Last 24 hrs: Laboratory Results - last 24 hr 12/30/19 Range/Units 12:56 WBC 14.60 H (4.0-11.0) K/uL RBC 4.43 (4.30-5.90) M/uL Hgb 12.8 (12.0-16.0) g/dL Hct 39.1 (36.0-46.0) % MCV 88.3 (80.0-98.0) fL MCH 28.9 (27.0-32.0) pg MCHC 32.7 (31.0-37.0) g/dL RDW Std Deviation 40.2 (28.0-62.0) fl RDW Coeff of Daryn 13 (11.0-15.0) % Plt Count 415 H (150-400) K/uL MPV 8.70 (7.40-12.00) fL Neut % (Auto) 83.5 H (48.0-80.0) % Lymph % (Auto) 8.3 L (16.0-40.0) % [place] % (Auto) 7.9 (0.0-15.0) % Eos % (Auto) 0.1 (0.0-7.0) % Baso % (Auto) 0.2 (0.0-1.5) % Neut # (Auto) 12.2 H (1.4-5.7) K/uL Lymph # (Auto) 1.2 (0.6-2.4) K/uL [place] # (Auto) 1.2 H (0.0-0.8) K/uL Eos # (Auto) 0.0 (0.0-0.7) K/uL Baso # (Auto) 0.0 (0.0-0.1) K/uL Nucleated RBC % 0.0 /100WBC Nucleated RBCs # 0 K/uL Result Diagrams: 12/30/19 12:56 Sepsis Event Note - Focused Exam Vital Signs: Vital Signs Temp Pulse Resp BP Pulse Ox 12/30/19 17:00 37.2 C 101 H 16 104/63 98 Consult PN Assessment/Plan Procedures: Procedures ASSAY OF AMYLASE (02/16/19) ASSAY OF CALCIUM (01/28/19) ASSAY OF CALCIUM IN URINE (10/08/18) ASSAY OF CREATININE (01/28/19) ASSAY OF LACTIC ACID (02/16/19) ASSAY OF LIPASE (02/16/19) ASSAY OF MAGNESIUM (09/26/18) ASSAY OF PARATHORMONE (08/15/19) ASSAY OF PHOSPHORUS (01/28/19) ASSAY OF TROPONIN QUANT (01/19/18) ASSAY OF URINE CREATININE (10/08/18) ASSAY OF URINE SODIUM (10/08/18) ASSAY THYROID STIM HORMONE (07/12/18) BREAST TOMOSYNTHESIS BI (09/11/19) CARDIOVASCULAR STRESS TEST (03/07/18) COMP SCREEN MAMMOGRAM ADD-ON (06/09/15) COMPLETE CBC AUTOMATED (06/30/14) COMPLETE CBC W/AUTO DIFF WBC (02/16/19) COMPREHEN METABOLIC PANEL (08/15/19) CULTURE AEROBIC IDENTIFY (12/04/13) DXA BONE DENSITY AXIAL (09/11/19) ECHO EXAM OF ABDOMEN (03/04/19) ELECTROCARDIOGRAM TRACING (02/16/19) EMERGENCY DEPT VISIT (02/16/19) EMERGENCY DEPT VISIT (01/19/18) EMERGENCY DEPT VISIT (05/15/16) GLYCOSYLATED HEMOGLOBIN TEST (08/15/19) HPV HIGH-RISK TYPES (07/11/18) HT MUSCLE IMAGE SPECT MULT (03/07/18) HYDRATE IV INFUSION ADD-ON (02/16/19) INFLUENZA ASSAY W/OPTIC (05/11/16) LAPAROSCOPIC CHOLECYSTECTOMY (04/04/19) LIPID PANEL (08/15/19) MAMMOGRAM SCREENING (08/01/13) MANUAL THERAPY 1/> REGIONS (06/05/19) MICROBE SUSCEPTIBLE KELLY (12/04/13) MRI BRAIN STEM W/O & W/DYE (02/04/19) MRI JNT OF LWR EXTRE W/O DYE (05/17/16) PROTHROMBIN TIME (01/19/18) PT EVAL LOW COMPLEX 20 MIN (06/05/19) PT EVALUATION (08/05/14) ROUTINE VENIPUNCTURE (08/15/19) SCR MAMMO BI INCL CAD (09/11/19) THER/PROPH/DIAG INJ IV PUSH (02/16/19) THERAPEUTIC EXERCISES (06/05/19) TISSUE EXAM BY PATHOLOGIST (04/04/19) TTE W/DOPPLER COMPLETE (01/23/18) URINALYSIS AUTO W/SCOPE (02/16/19) URINE BACTERIA CULTURE (12/04/13) URINE TEST (04/04/19) US EXAM OF HEAD AND NECK (09/11/19) VIT D 1 25-DIHYDROXY (06/30/14) VITAMIN D 25 HYDROXY (08/15/19) X-RAY EXAM CHEST 1 VIEW (01/19/18) X-RAY EXAM OF ANKLE (05/15/16) X-RAY EXAM OF HAND (05/15/16) X-RAY EXAM OF KNEE 1 OR 2 (06/28/16) X-RAY EXAM OF KNEE 3 (04/04/17) X-RAY EXAM OF LOWER LEG (05/15/16) X-RAY EXAM OF SHOULDER (05/09/19) (1) Diverticulitis SNOMED Code(s): 555939656 Code(s): K57.92 - DVTRCLI OF INTEST, PART UNSP, W/O PERF OR ABSCESS W/O BLEED Current Visit: Yes Problem List Initiated/Reviewed/Updated: Yes Plan: The patient and I discussed the pathophysiology of diverticulitis. Given her intracolonic abscess, she will need to be on IV antibiotics. She has no signs of peritonitis so no need for surgical intervention at this time. She should be npo (other than ice chips and sips with meds) and be given IVF. I discussed her case with the hospitalist who will treat her atrial fibrillation. Will continue to follow. Please call with any questions or concerns.
[2019-12-30] MEDS: Sodium Chloride 0.9% 1,000 ML IV SCH (18:39)
[2019-12-30] MEDS: Acetaminophen 500 MG Tab PO PRN (20:27)
[2019-12-31] MEDS: Acetaminophen 500 MG Tab PO PRN ×4 (00:34→17:22)
[2019-12-31] MEDS: Sodium Chloride 0.9% 1,000 ML IV SCH ×3 (03:48→21:39)
[2019-12-31] MEDS: Piperacillin/Tazobactam 4.5 GM in Sodium Chloride 0.9% 100 ML IV SCH ×4 (03:49→21:33)
[2019-12-31 06:12] LABS: BLOOD UREA NITROGEN,BUN 12 mg/dL (7.0-18.0); CARBON DIOXIDE,CO2 22.4 mmol/L (21.0-32.0); CHLORIDE,CL 109 mmol/L (98-107); GLUCOSE RANDOM 79 mg/dL (74-106); POTASSIUM,K 3.7 mmol/L (3.5-5.1); SODIUM,NA 143 mmol/L (136-145)
[2019-12-31] MEDS: Enoxaparin 40 MG/0.4 ML Syringe SUBCUT SCH (10:17)
[2019-12-31] MEDS: Metoprolol Succinate 25 MG Tab.ER PO SCH (10:17)
--- NOTE | 2019-12-31 11:53 | PCM.PN ---
- General Info Date of Service: 12/31/19 Admission Dx/Problem (Free Text): Admission Diagnosis/Problem Admission Diagnosis/Problem Diverticulitis of intestine with abscess Subjective Update: Patient feeling better today. No fever chills nausea vomiting. - Review of Systems General: Denies: Fever, Weakness, Fatigue Pulmonary: Denies: Shortness of Breath, Pleuritic Chest Pain Gastrointestinal: Reports: Abdominal Pain (improved ), Flatus. Denies: Decreased Appetite, Diarrhea, Difficulty Swallowing, Nausea, Vomiting Genitourinary: Denies: Frequency, Burning, Pain Musculoskeletal: Denies: Neck Pain, Shoulder Pain, Arm Pain Skin: Denies: Cyanosis, Jaundice, Mottled - Patient Data Vitals - Most Recent: Last Vital Signs Temp 37.1 C 12/31/19 07:11 Pulse 86 12/31/19 10:17 Resp 16 12/31/19 07:11 BP 111/56 L 12/31/19 10:17 Pulse Ox 98 12/31/19 07:11 Weight - Most Recent: 77.02 kg I&O - Last 24 Hours: Intake & Output 12/30/19 12/31/19 12/31/19 22:59 06:59 14:59 Intake Total 1100 60 Output Total 200 820 Balance 900 -760 Lab Results Last 24 Hours: Laboratory Results - last 24 hr 12/30/19 12/30/19 12/30/19 Range/Units 12:56 16:49 16:49 WBC 14.60 H (4.0-11.0) K/uL RBC 4.43 (4.30-5.90) M/uL Hgb 12.8 (12.0-16.0) g/dL Hct 39.1 (36.0-46.0) % MCV 88.3 (80.0-98.0) fL MCH 28.9 (27.0-32.0) pg MCHC 32.7 (31.0-37.0) g/dL RDW Std Deviation 40.2 (28.0-62.0) fl RDW Coeff of Daryn 13 (11.0-15.0) % Plt Count 415 H (150-400) K/uL MPV 8.70 (7.40-12.00) fL Neut % (Auto) 83.5 H (48.0-80.0) % Lymph % (Auto) 8.3 L (16.0-40.0) % [place] % (Auto) 7.9 (0.0-15.0) % Eos % (Auto) 0.1 (0.0-7.0) % Baso % (Auto) 0.2 (0.0-1.5) % Neut # (Auto) 12.2 H (1.4-5.7) K/uL Lymph # (Auto) 1.2 (0.6-2.4) K/uL [place] # (Auto) 1.2 H (0.0-0.8) K/uL Eos # (Auto) 0.0 (0.0-0.7) K/uL Baso # (Auto) 0.0 (0.0-0.1) K/uL Nucleated RBC % 0.0 /100WBC Nucleated RBCs # 0 K/uL Sodium (136-145) mmol/L Potassium (3.5-5.1) mmol/L Chloride (98-107) mmol/L Carbon Dioxide (21.0-32.0) mmol/L BUN (7.0-18.0) mg/dL Creatinine (0.6-1.0) mg/dL Est Cr Clr Drug Dosing mL/min Estimated GFR (MDRD) ml/min Glucose (74-106) mg/dL Calcium (8.5-10.1) mg/dL Phosphorus 3.5 (2.6-4.7) mg/dL Magnesium 2.2 (1.8-2.4) mg/dL Total Bilirubin (0.2-1.0) mg/dL AST (15-37) IU/L ALT (14-63) IU/L Alkaline Phosphatase (46-116) U/L Troponin I < 0.050 (0.000-0.056) ng/mL Total Protein (6.4-8.2) g/dL Albumin (3.4-5.0) g/dL Globulin (2.6-4.0) g/dL Albumin/Globulin Ratio (0.9-1.6) 12/31/19 12/31/19 Range/Units 04:50 04:50 WBC 9.30 (4.0-11.0) K/uL RBC 3.60 L (4.30-5.90) M/uL Hgb 10.3 L (12.0-16.0) g/dL Hct 31.8 L (36.0-46.0) % MCV 88.3 (80.0-98.0) fL MCH 28.6 (27.0-32.0) pg MCHC 32.4 (31.0-37.0) g/dL RDW Std Deviation 40.9 (28.0-62.0) fl RDW Coeff of Daryn 13 (11.0-15.0) % Plt Count 321 (150-400) K/uL MPV 8.20 (7.40-12.00) fL Neut % (Auto) 76.6 (48.0-80.0) % Lymph % (Auto) 12.8 L (16.0-40.0) % [place] % (Auto) 9.5 (0.0-15.0) % Eos % (Auto) 0.8 (0.0-7.0) % Baso % (Auto) 0.3 (0.0-1.5) % Neut # (Auto) 7.1 H (1.4-5.7) K/uL Lymph # (Auto) 1.2 (0.6-2.4) K/uL [place] # (Auto) 0.9 H (0.0-0.8) K/uL Eos # (Auto) 0.1 (0.0-0.7) K/uL Baso # (Auto) 0.0 (0.0-0.1) K/uL Nucleated RBC % 0.0 /100WBC Nucleated RBCs # 0 K/uL Sodium 143 (136-145) mmol/L Potassium 3.7 (3.5-5.1) mmol/L Chloride 109 H (98-107) mmol/L Carbon Dioxide 22.4 (21.0-32.0) mmol/L BUN 12 (7.0-18.0) mg/dL Creatinine 0.8 (0.6-1.0) mg/dL Est Cr Clr Drug Dosing 69.58 mL/min Estimated GFR (MDRD) > 60.0 ml/min Glucose 79 (74-106) mg/dL Calcium 7.8 L (8.5-10.1) mg/dL Phosphorus (2.6-4.7) mg/dL Magnesium (1.8-2.4) mg/dL Total Bilirubin 0.5 (0.2-1.0) mg/dL AST 13 L (15-37) IU/L ALT 15 (14-63) IU/L Alkaline Phosphatase 64 (46-116) U/L Troponin I (0.000-0.056) ng/mL Total Protein 5.7 L (6.4-8.2) g/dL Albumin 2.5 L (3.4-5.0) g/dL Globulin 3.2 (2.6-4.0) g/dL Albumin/Globulin Ratio 0.8 L (0.9-1.6) Med Orders - Current: Current Medications Acetaminophen (Tylenol Extra Strength) 500 mg PO Q4H PRN PRN Reason: Pain Last Admin: 12/31/19 07:46 Dose: 500 mg Documented by: Enoxaparin Sodium (Lovenox) 40 mg SUBCUT Q24H [facility] Last Admin: 12/31/19 10:17 Dose: 40 mg Documented by: Sodium Chloride (Normal Saline) 1,000 mls @ 125 mls/hr IV Q8H [facility] Last Admin: 12/31/19 03:48 Dose: 125 mls/hr Documented by: Piperacillin Sod/Tazobactam (Sod 4.5 gm/ Sodium Chloride) 100 mls @ 100 mls/hr IV Q6H [facility] Last Admin: 12/31/19 10:17 Dose: 100 mls/hr Documented by: Metoprolol Succinate (Toprol Xl) 12.5 mg PO DAILY [facility] Last Admin: 12/31/19 10:17 Dose: 12.5 mg Documented by: Morphine Sulfate (Morphine) 2 mg IVPUSH Q2H PRN PRN Reason: Pain (severe 7-10) Stop: 12/31/19 16:17 Ondansetron HCl (Zofran) 4 mg IVPUSH Q4H PRN PRN Reason: Pain Sodium Chloride (Saline Flush) 2.5 ml FLUSH ASDIRECTED PRN PRN Reason: Keep Vein Open Discontinued Medications Sodium Chloride (Normal Saline) 1,000 mls @ 999 mls/hr IV .Bolus ONE Stop: 12/30/19 17:52 Last Admin: 12/30/19 17:31 Dose: 999 mls/hr Documented by: Sodium Chloride (Normal Saline) 1,000 mls @ 999 mls/hr IV ONETIME ONE Stop: 12/30/19 17:53 Last Admin: 12/30/19 17:26 Dose: Not Given Documented by: - Exam Quality Assessment: No: Supplemental Oxygen General: Alert, Oriented Neck: Supple, Trachea Midline Lungs: Clear to Auscultation, Normal Respiratory Effort Cardiovascular: Regular Rate, Irregular Rhythm. No: Bradycardia, Tachycardia GI/Abdominal Exam: Soft, Tender. No: No Organomegaly, No Distention, Distended, Rigid, Rebound Sepsis Event Note - Evaluation Sepsis Screening Result: No Definite Risk - Focused Exam Vital Signs: Vital Signs Temp Pulse Pulse Resp BP BP Pulse Ox 12/31/19 10:17 86 111/56 L 12/31/19 07:11 37.1 C 80 16 111/52 L 98 12/31/19 04:00 37.6 C 88 18 115/50 L 98 12/31/19 00:00 37 C 80 18 111/54 L 97 - Problem List & Annotations (1) Afib SNOMED Code(s): 26960582 Code(s): I48.91 - UNSPECIFIED ATRIAL FIBRILLATION Status: Acute Current Visit: Yes (2) Diverticulitis SNOMED Code(s): 024203565 Code(s): K57.92 - DVTRCLI OF INTEST, PART UNSP, W/O PERF OR ABSCESS W/O BLEED Status: Acute Current Visit: Yes (3) Abdominal pain SNOMED Code(s): 43901363 Code(s): R10.9 - UNSPECIFIED ABDOMINAL PAIN Status: Acute Current Visit: No Qualifiers: Abdominal location: right upper quadrant Qualified Code(s): R10.11 - Right upper quadrant pain - Problem List Review Problem List Initiated/Reviewed/Updated: Yes - My Orders Last 24 Hours: My Active Orders 12/30/19 18:09 Communication Order [RC] DAILY 12/30/19 20:17 Acetaminophen [Tylenol Extra Strength] 500 mg PO Q4H PRN - Plan Plan:: Patient is a 64-year-old female admitted for intracolonic abscess continue IV Zosyn, white count has advance diet to clear diet pain control with IV morphine and Tylenol follow-up on blood cultures monitor replete electrolytes as needed patient was found to be in A. fib upon placing her on telemetry which resolved with IV fluid bolus, currently heart rate is controlled we'll start on low-dose beta karina will continue to monitor surgery on board, appreciate their recommendations
--- NOTE | 2019-12-31 14:22 | PCM.CONSN ---
- General Info Date of Service: 12/31/19 Subjective Update: Patient feeling better today. Still sore in LLQ. No fever chills nausea vomiting. Now passing gas. - Review of Systems General: Reports: No Symptoms HEENT: Reports: No Symptoms Pulmonary: Reports: No Symptoms Cardiovascular: Reports: No Symptoms Gastrointestinal: Reports: No Symptoms, Flatus Genitourinary: Reports: No Symptoms - Patient Data Vitals - Most Recent: Last Vital Signs Temp 36.6 C 12/31/19 11:35 Pulse 98 12/31/19 11:35 Resp 16 12/31/19 11:35 BP 119/58 L 12/31/19 11:35 Pulse Ox 98 12/31/19 11:35 Weight - Most Recent: 77.02 kg I&O - Last 24 Hours: Intake & Output 12/30/19 12/31/19 12/31/19 22:59 06:59 14:59 Intake Total 1100 60 Output Total 200 820 Balance 900 -760 Lab Results Last 24 Hours: Laboratory Results - last 24 hr 12/30/19 12/30/19 12/30/19 Range/Units 12:56 16:49 16:49 WBC 14.60 H (4.0-11.0) K/uL RBC 4.43 (4.30-5.90) M/uL Hgb 12.8 (12.0-16.0) g/dL Hct 39.1 (36.0-46.0) % MCV 88.3 (80.0-98.0) fL MCH 28.9 (27.0-32.0) pg MCHC 32.7 (31.0-37.0) g/dL RDW Std Deviation 40.2 (28.0-62.0) fl RDW Coeff of Daryn 13 (11.0-15.0) % Plt Count 415 H (150-400) K/uL MPV 8.70 (7.40-12.00) fL Neut % (Auto) 83.5 H (48.0-80.0) % Lymph % (Auto) 8.3 L (16.0-40.0) % [place] % (Auto) 7.9 (0.0-15.0) % Eos % (Auto) 0.1 (0.0-7.0) % Baso % (Auto) 0.2 (0.0-1.5) % Neut # (Auto) 12.2 H (1.4-5.7) K/uL Lymph # (Auto) 1.2 (0.6-2.4) K/uL [place] # (Auto) 1.2 H (0.0-0.8) K/uL Eos # (Auto) 0.0 (0.0-0.7) K/uL Baso # (Auto) 0.0 (0.0-0.1) K/uL Nucleated RBC % 0.0 /100WBC Nucleated RBCs # 0 K/uL Sodium (136-145) mmol/L Potassium (3.5-5.1) mmol/L Chloride (98-107) mmol/L Carbon Dioxide (21.0-32.0) mmol/L BUN (7.0-18.0) mg/dL Creatinine (0.6-1.0) mg/dL Est Cr Clr Drug Dosing mL/min Estimated GFR (MDRD) ml/min Glucose (74-106) mg/dL Calcium (8.5-10.1) mg/dL Phosphorus 3.5 (2.6-4.7) mg/dL Magnesium 2.2 (1.8-2.4) mg/dL Total Bilirubin (0.2-1.0) mg/dL AST (15-37) IU/L ALT (14-63) IU/L Alkaline Phosphatase (46-116) U/L Troponin I < 0.050 (0.000-0.056) ng/mL Total Protein (6.4-8.2) g/dL Albumin (3.4-5.0) g/dL Globulin (2.6-4.0) g/dL Albumin/Globulin Ratio (0.9-1.6) 12/31/19 12/31/19 Range/Units 04:50 04:50 WBC 9.30 (4.0-11.0) K/uL RBC 3.60 L (4.30-5.90) M/uL Hgb 10.3 L (12.0-16.0) g/dL Hct 31.8 L (36.0-46.0) % MCV 88.3 (80.0-98.0) fL MCH 28.6 (27.0-32.0) pg MCHC 32.4 (31.0-37.0) g/dL RDW Std Deviation 40.9 (28.0-62.0) fl RDW Coeff of Daryn 13 (11.0-15.0) % Plt Count 321 (150-400) K/uL MPV 8.20 (7.40-12.00) fL Neut % (Auto) 76.6 (48.0-80.0) % Lymph % (Auto) 12.8 L (16.0-40.0) % [place] % (Auto) 9.5 (0.0-15.0) % Eos % (Auto) 0.8 (0.0-7.0) % Baso % (Auto) 0.3 (0.0-1.5) % Neut # (Auto) 7.1 H (1.4-5.7) K/uL Lymph # (Auto) 1.2 (0.6-2.4) K/uL [place] # (Auto) 0.9 H (0.0-0.8) K/uL Eos # (Auto) 0.1 (0.0-0.7) K/uL Baso # (Auto) 0.0 (0.0-0.1) K/uL Nucleated RBC % 0.0 /100WBC Nucleated RBCs # 0 K/uL Sodium 143 (136-145) mmol/L Potassium 3.7 (3.5-5.1) mmol/L Chloride 109 H (98-107) mmol/L Carbon Dioxide 22.4 (21.0-32.0) mmol/L BUN 12 (7.0-18.0) mg/dL Creatinine 0.8 (0.6-1.0) mg/dL Est Cr Clr Drug Dosing 69.58 mL/min Estimated GFR (MDRD) > 60.0 ml/min Glucose 79 (74-106) mg/dL Calcium 7.8 L (8.5-10.1) mg/dL Phosphorus (2.6-4.7) mg/dL Magnesium (1.8-2.4) mg/dL Total Bilirubin 0.5 (0.2-1.0) mg/dL AST 13 L (15-37) IU/L ALT 15 (14-63) IU/L Alkaline Phosphatase 64 (46-116) U/L Troponin I (0.000-0.056) ng/mL Total Protein 5.7 L (6.4-8.2) g/dL Albumin 2.5 L (3.4-5.0) g/dL Globulin 3.2 (2.6-4.0) g/dL Albumin/Globulin Ratio 0.8 L (0.9-1.6) Med Orders - Current: Current Medications Acetaminophen (Tylenol Extra Strength) 500 mg PO Q4H PRN PRN Reason: Pain Last Admin: 12/31/19 13:22 Dose: 500 mg Documented by: Enoxaparin Sodium (Lovenox) 40 mg SUBCUT Q24H [facility] Last Admin: 12/31/19 10:17 Dose: 40 mg Documented by: Sodium Chloride (Normal Saline) 1,000 mls @ 125 mls/hr IV Q8H [facility] Last Admin: 12/31/19 13:23 Dose: 125 mls/hr Documented by: Piperacillin Sod/Tazobactam (Sod 4.5 gm/ Sodium Chloride) 100 mls @ 100 mls/hr IV Q6H [facility] Last Admin: 12/31/19 10:17 Dose: 100 mls/hr Documented by: Metoprolol Succinate (Toprol Xl) 12.5 mg PO DAILY [facility] Last Admin: 12/31/19 10:17 Dose: 12.5 mg Documented by: Morphine Sulfate (Morphine) 2 mg IVPUSH Q2H PRN PRN Reason: Pain (severe 7-10) Stop: 12/31/19 16:17 Ondansetron HCl (Zofran) 4 mg IVPUSH Q4H PRN PRN Reason: Pain Sodium Chloride (Saline Flush) 2.5 ml FLUSH ASDIRECTED PRN PRN Reason: Keep Vein Open Discontinued Medications Sodium Chloride (Normal Saline) 1,000 mls @ 999 mls/hr IV .Bolus ONE Stop: 12/30/19 17:52 Last Admin: 12/30/19 17:31 Dose: 999 mls/hr Documented by: Sodium Chloride (Normal Saline) 1,000 mls @ 999 mls/hr IV ONETIME ONE Stop: 12/30/19 17:53 Last Admin: 12/30/19 17:26 Dose: Not Given Documented by: - Exam Quality Assessment: Supplemental Oxygen General: Alert, Oriented, Cooperative HEENT: Pupils Equal, Pupils Reactive Lungs: Normal Respiratory Effort GI/Abdominal Exam: Soft, Non-Tender, No Distention, No Mass, Other (Subjective tenderness to deep palpation in LLQ but no guarding rebound or distension ) Sepsis Event Note - Evaluation Sepsis Screening Result: No Definite Risk - Focused Exam Vital Signs: Vital Signs Temp Pulse Pulse Resp BP BP Pulse Ox 12/31/19 11:35 36.6 C 98 16 119/58 L 98 12/31/19 10:17 86 111/56 L 12/31/19 07:11 37.1 C 80 16 111/52 L 98 12/31/19 04:00 37.6 C 88 18 115/50 L 98 Consult PN Assessment/Plan Procedures: Procedures ASSAY OF AMYLASE (02/16/19) ASSAY OF CALCIUM (01/28/19) ASSAY OF CALCIUM IN URINE (10/08/18) ASSAY OF CREATININE (01/28/19) ASSAY OF LACTIC ACID (02/16/19) ASSAY OF LIPASE (02/16/19) ASSAY OF MAGNESIUM (09/26/18) ASSAY OF PARATHORMONE (08/15/19) ASSAY OF PHOSPHORUS (01/28/19) ASSAY OF TROPONIN QUANT (01/19/18) ASSAY OF URINE CREATININE (10/08/18) ASSAY OF URINE SODIUM (10/08/18) ASSAY THYROID STIM HORMONE (07/12/18) BREAST TOMOSYNTHESIS BI (09/11/19) CARDIOVASCULAR STRESS TEST (03/07/18) COMP SCREEN MAMMOGRAM ADD-ON (06/09/15) COMPLETE CBC AUTOMATED (06/30/14) COMPLETE CBC W/AUTO DIFF WBC (02/16/19) COMPREHEN METABOLIC PANEL (08/15/19) CULTURE AEROBIC IDENTIFY (12/04/13) DXA BONE DENSITY AXIAL (09/11/19) ECHO EXAM OF ABDOMEN (03/04/19) ELECTROCARDIOGRAM TRACING (02/16/19) EMERGENCY DEPT VISIT (02/16/19) EMERGENCY DEPT VISIT (01/19/18) EMERGENCY DEPT VISIT (05/15/16) GLYCOSYLATED HEMOGLOBIN TEST (08/15/19) HPV HIGH-RISK TYPES (07/11/18) HT MUSCLE IMAGE SPECT MULT (03/07/18) HYDRATE IV INFUSION ADD-ON (02/16/19) INFLUENZA ASSAY W/OPTIC (05/11/16) LAPAROSCOPIC CHOLECYSTECTOMY (04/04/19) LIPID PANEL (08/15/19) MAMMOGRAM SCREENING (08/01/13) MANUAL THERAPY 1/> REGIONS (06/05/19) MICROBE SUSCEPTIBLE KELLY (12/04/13) MRI BRAIN STEM W/O & W/DYE (02/04/19) MRI JNT OF LWR EXTRE W/O DYE (05/17/16) PROTHROMBIN TIME (01/19/18) PT EVAL LOW COMPLEX 20 MIN (06/05/19) PT EVALUATION (08/05/14) ROUTINE VENIPUNCTURE (08/15/19) SCR MAMMO BI INCL CAD (09/11/19) THER/PROPH/DIAG INJ IV PUSH (02/16/19) THERAPEUTIC EXERCISES (06/05/19) TISSUE EXAM BY PATHOLOGIST (04/04/19) TTE W/DOPPLER COMPLETE (01/23/18) URINALYSIS AUTO W/SCOPE (02/16/19) URINE BACTERIA CULTURE (12/04/13) URINE TEST (04/04/19) US EXAM OF HEAD AND NECK (09/11/19) VIT D 1 25-DIHYDROXY (06/30/14) VITAMIN D 25 HYDROXY (08/15/19) X-RAY EXAM CHEST 1 VIEW (01/19/18) X-RAY EXAM OF ANKLE (05/15/16) X-RAY EXAM OF HAND (05/15/16) X-RAY EXAM OF KNEE 1 OR 2 (06/28/16) X-RAY EXAM OF KNEE 3 (04/04/17) X-RAY EXAM OF LOWER LEG (05/15/16) X-RAY EXAM OF SHOULDER (05/09/19) (1) Diverticulitis SNOMED Code(s): 137812791 Code(s): K57.92 - DVTRCLI OF INTEST, PART UNSP, W/O PERF OR ABSCESS W/O BLEED Current Visit: Yes Problem List Initiated/Reviewed/Updated: Yes Plan: Ok to advance to clears today. If still doing well and WBC remains WNL, can advance diet in am and transition to oral antibiotics.
[2019-12-31] MEDS: Ondansetron 4 MG/2 ML SDV IVPUSH PRN (17:22)
[2020-01-01] MEDS: Ondansetron 4 MG/2 ML SDV IVPUSH PRN (00:05)
[2020-01-01] MEDS: Piperacillin/Tazobactam 4.5 GM in Sodium Chloride 0.9% 100 ML IV SCH ×2 (05:06→10:44)
[2020-01-01 06:00] LABS: BLOOD UREA NITROGEN,BUN 6 mg/dL (7.0-18.0); CARBON DIOXIDE,CO2 20.6 mmol/L (21.0-32.0); CHLORIDE,CL 110 mmol/L (98-107); GLUCOSE RANDOM 77 mg/dL (74-106); POTASSIUM,K 3.1 mmol/L (3.5-5.1); SODIUM,NA 141 mmol/L (136-145)
[2020-01-01] MEDS: Metoprolol Succinate 25 MG Tab.ER PO SCH (09:16)
--- NOTE | 2020-01-01 09:41 | PCM.CONSN ---
- General Info Date of Service: 01/01/20 Subjective Update: Pain is almost gone. Tolerating clear liquid diet without difficulty. Has had several loose bowel movements - Review of Systems General: Reports: No Symptoms HEENT: Reports: No Symptoms Pulmonary: Reports: No Symptoms Cardiovascular: Reports: No Symptoms Gastrointestinal: Reports: Diarrhea, Flatus. Denies: Abdominal Pain, Decreased Appetite Genitourinary: Reports: No Symptoms Musculoskeletal: Reports: No Symptoms - Patient Data Vitals - Most Recent: Last Vital Signs Temp 36.9 C 01/01/20 08:00 Pulse 79 01/01/20 08:00 Resp 16 01/01/20 08:00 BP 104/50 L 01/01/20 08:00 Pulse Ox 96 01/01/20 08:00 Weight - Most Recent: 77.02 kg I&O - Last 24 Hours: Intake & Output 12/31/19 01/01/20 01/01/20 22:59 06:59 14:59 Intake Total 1845 Output Total 750 Balance 1095 Lab Results Last 24 Hours: Laboratory Results - last 24 hr 01/01/20 01/01/20 Range/Units 05:10 05:10 WBC 7.84 (4.0-11.0) K/uL RBC 3.24 L (4.30-5.90) M/uL Hgb 9.5 L (12.0-16.0) g/dL Hct 28.7 L (36.0-46.0) % MCV 88.6 (80.0-98.0) fL MCH 29.3 (27.0-32.0) pg MCHC 33.1 (31.0-37.0) g/dL RDW Std Deviation 40.9 (28.0-62.0) fl RDW Coeff of Daryn 13 (11.0-15.0) % Plt Count 270 (150-400) K/uL MPV 8.20 (7.40-12.00) fL Neut % (Auto) 71.5 (48.0-80.0) % Lymph % (Auto) 19.9 (16.0-40.0) % Riley % (Auto) 6.8 (0.0-15.0) % Eos % (Auto) 1.4 (0.0-7.0) % Baso % (Auto) 0.4 (0.0-1.5) % Neut # (Auto) 5.6 (1.4-5.7) K/uL Lymph # (Auto) 1.6 (0.6-2.4) K/uL Riley # (Auto) 0.5 (0.0-0.8) K/uL Eos # (Auto) 0.1 (0.0-0.7) K/uL Baso # (Auto) 0.0 (0.0-0.1) K/uL Nucleated RBC % 0.0 /100WBC Nucleated RBCs # 0 K/uL Sodium 141 (136-145) mmol/L Potassium 3.1 L (3.5-5.1) mmol/L Chloride 110 H (98-107) mmol/L Carbon Dioxide 20.6 L (21.0-32.0) mmol/L BUN 6 L (7.0-18.0) mg/dL Creatinine 0.6 (0.6-1.0) mg/dL Est Cr Clr Drug Dosing 92.77 mL/min Estimated GFR (MDRD) > 60.0 ml/min Glucose 77 (74-106) mg/dL Calcium 7.1 L (8.5-10.1) mg/dL Total Bilirubin 0.3 (0.2-1.0) mg/dL AST 9 L (15-37) IU/L ALT 17 (14-63) IU/L Alkaline Phosphatase 59 (46-116) U/L Total Protein 5.3 L (6.4-8.2) g/dL Albumin 2.3 L (3.4-5.0) g/dL Globulin 3.0 (2.6-4.0) g/dL Albumin/Globulin Ratio 0.8 L (0.9-1.6) Renaldo Results Last 24 Hours: Microbiology 12/30/19 16:49 Aerobic Blood Culture - Preliminary Blood - Venous - Lab Draw NO GROWTH AFTER 1 DAY Anaerobic Blood Culture - Preliminary NO GROWTH AFTER 1 DAY 12/30/19 16:40 Aerobic Blood Culture - Preliminary Blood - Venous NO GROWTH AFTER 1 DAY Anaerobic Blood Culture - Preliminary NO GROWTH AFTER 1 DAY Med Orders - Current: Current Medications Acetaminophen (Tylenol Extra Strength) 500 mg PO Q4H PRN PRN Reason: Pain Last Admin: 12/31/19 17:22 Dose: 500 mg Documented by: Enoxaparin Sodium (Lovenox) 40 mg SUBCUT Q24H [facility] Last Admin: 12/31/19 10:17 Dose: 40 mg Documented by: Sodium Chloride (Normal Saline) 1,000 mls @ 125 mls/hr IV Q8H [facility] Last Admin: 12/31/19 21:39 Dose: 125 mls/hr Documented by: Piperacillin Sod/Tazobactam (Sod 4.5 gm/ Sodium Chloride) 100 mls @ 100 mls/hr IV Q6H [facility] Last Admin: 01/01/20 05:06 Dose: 100 mls/hr Documented by: Metoprolol Succinate (Toprol Xl) 12.5 mg PO DAILY [facility] Last Admin: 01/01/20 09:16 Dose: Not Given Documented by: Ondansetron HCl (Zofran) 4 mg IVPUSH Q4H PRN PRN Reason: Pain Last Admin: 01/01/20 00:05 Dose: 4 mg Documented by: Sodium Chloride (Saline Flush) 2.5 ml FLUSH ASDIRECTED PRN PRN Reason: Keep Vein Open Discontinued Medications Sodium Chloride (Normal Saline) 1,000 mls @ 999 mls/hr IV .Bolus ONE Stop: 12/30/19 17:52 Last Admin: 12/30/19 17:31 Dose: 999 mls/hr Documented by: Sodium Chloride (Normal Saline) 1,000 mls @ 999 mls/hr IV ONETIME ONE Stop: 12/30/19 17:53 Last Admin: 12/30/19 17:26 Dose: Not Given Documented by: Morphine Sulfate (Morphine) 2 mg IVPUSH Q2H PRN PRN Reason: Pain (severe 7-10) Stop: 12/31/19 16:17 - Exam General: Alert, Oriented, Cooperative HEENT: Pupils Equal Lungs: Normal Respiratory Effort GI/Abdominal Exam: Soft, Non-Tender, No Distention, No Mass Sepsis Event Note - Evaluation Sepsis Screening Result: No Definite Risk - Focused Exam Vital Signs: Vital Signs Temp Pulse Resp BP Pulse Ox 01/01/20 08:00 36.9 C 79 16 104/50 L 96 01/01/20 01:00 105/60 01/01/20 00:06 37.1 C 62 16 92/53 L 92 L Consult PN Assessment/Plan Procedures: Procedures ASSAY OF AMYLASE (02/16/19) ASSAY OF CALCIUM (01/28/19) ASSAY OF CALCIUM IN URINE (10/08/18) ASSAY OF CREATININE (01/28/19) ASSAY OF LACTIC ACID (02/16/19) ASSAY OF LIPASE (02/16/19) ASSAY OF MAGNESIUM (09/26/18) ASSAY OF PARATHORMONE (08/15/19) ASSAY OF PHOSPHORUS (01/28/19) ASSAY OF TROPONIN QUANT (01/19/18) ASSAY OF URINE CREATININE (10/08/18) ASSAY OF URINE SODIUM (10/08/18) ASSAY THYROID STIM HORMONE (07/12/18) BREAST TOMOSYNTHESIS BI (09/11/19) CARDIOVASCULAR STRESS TEST (03/07/18) COMP SCREEN MAMMOGRAM ADD-ON (06/09/15) COMPLETE CBC AUTOMATED (06/30/14) COMPLETE CBC W/AUTO DIFF WBC (02/16/19) COMPREHEN METABOLIC PANEL (08/15/19) CULTURE AEROBIC IDENTIFY (12/04/13) DXA BONE DENSITY AXIAL (09/11/19) ECHO EXAM OF ABDOMEN (03/04/19) ELECTROCARDIOGRAM TRACING (02/16/19) EMERGENCY DEPT VISIT (02/16/19) EMERGENCY DEPT VISIT (01/19/18) EMERGENCY DEPT VISIT (05/15/16) GLYCOSYLATED HEMOGLOBIN TEST (08/15/19) HPV HIGH-RISK TYPES (07/11/18) HT MUSCLE IMAGE SPECT MULT (03/07/18) HYDRATE IV INFUSION ADD-ON (02/16/19) INFLUENZA ASSAY W/OPTIC (05/11/16) LAPAROSCOPIC CHOLECYSTECTOMY (04/04/19) LIPID PANEL (08/15/19) MAMMOGRAM SCREENING (08/01/13) MANUAL THERAPY 1/> REGIONS (06/05/19) MICROBE SUSCEPTIBLE RENALDO (12/04/13) MRI BRAIN STEM W/O & W/DYE (02/04/19) MRI JNT OF LWR EXTRE W/O DYE (05/17/16) PROTHROMBIN TIME (01/19/18) PT EVAL LOW COMPLEX 20 MIN (06/05/19) PT EVALUATION (08/05/14) ROUTINE VENIPUNCTURE (08/15/19) SCR MAMMO BI INCL CAD (09/11/19) THER/PROPH/DIAG INJ IV PUSH (02/16/19) THERAPEUTIC EXERCISES (06/05/19) TISSUE EXAM BY PATHOLOGIST (04/04/19) TTE W/DOPPLER COMPLETE (01/23/18) URINALYSIS AUTO W/SCOPE (02/16/19) URINE BACTERIA CULTURE (12/04/13) URINE TEST (04/04/19) US EXAM OF HEAD AND NECK (09/11/19) VIT D 1 25-DIHYDROXY (06/30/14) VITAMIN D 25 HYDROXY (08/15/19) X-RAY EXAM CHEST 1 VIEW (01/19/18) X-RAY EXAM OF ANKLE (05/15/16) X-RAY EXAM OF HAND (05/15/16) X-RAY EXAM OF KNEE 1 OR 2 (06/28/16) X-RAY EXAM OF KNEE 3 (04/04/17) X-RAY EXAM OF LOWER LEG (05/15/16) X-RAY EXAM OF SHOULDER (05/09/19) (1) Diverticulitis SNOMED Code(s): 999641078 Code(s): K57.92 - DVTRCLI OF INTEST, PART UNSP, W/O PERF OR ABSCESS W/O BLEED Current Visit: Yes Problem List Initiated/Reviewed/Updated: Yes Plan: Advance diet to regular. Transition to oral antibiotics. The patient can discharge home today from my standpoint. Follow up in my clinic in 2 weeks. Follow a low residue diet. We discussed going back to the OR should the pain come back given her known colonic abscess. Will repeat CT in 2 weeks to ensure this is resolving.
[2020-01-01] MEDS: Enoxaparin 40 MG/0.4 ML Syringe SUBCUT SCH (10:44)
[2020-01-01 13:31] VITALS: BP 120/40; PULSE 72
[2020-01-01] MEDS ORDERED: Potassium Chloride 10% 20 MEQ/15 ML Soln 30 ML UD Cup PO ONE (13:58)
--- NOTE | 2020-01-01 14:33 | PCM.DCSUM1 ---
Discharge Summary - Hospital Course Free Text/Narrative:: Patient is a 64 year old female with PMH of paroxysmal Afib who presented to her PCP office today with abdominal pain. current to the patient, she started developing abdominal discomfort and constipation around December 20. She tried OTC laxatives with no results initially but later she developed watery diarrhea which she attributed to laxative use. Patient states that on Monday she started feeling febrile and her abdominal pain started getting worse. so today she went to her primary care office where she got the CAT scan of her abdomen/ pelvis which showed thickening of the sigmoid colon with an intracolonic abscess. She has had a colonoscopy in the past but is due for one next year. She denies nausea and vomiting. She had COVID testing this morning which was negative. Her CBC showed a leukocytosis with a left shift, she was slightly tachycardic, lactic acid was obtained in the clinic which was negative. The pressure was on the softer side which per patient is here normal. She was admitted to the Hospital for further management. In the hospital patient was started on IV Zosyn,she was kept nothing per mouth, received IV Zofran and Tylenol for pain. surgery was on board and recommended medical management with IV antibiotics. Next morning patient's white blood count improved and she was started on clear diet IV antibiotics were continued for under the day.cultures were negative. During hospitalization patient also had an episode of A. fib RVR, she received elevated heart rate, he was started on low-dose Lopressor or her A. fib. Patient tolerated her regular diet next day Patient was medically stable to and recommended to follow-up with surgery upon discharge and get a repeat im in next few weeks which will be arranged by the surgery. she was discharged on oral Cipro and Flagyl for 2 weeks. - Discharge Data Discharge Date: 01/01/20 Discharge Disposition: Home, Self-Care 01 Condition: Good - Referral to Home Health Primary Care Physician: Marlys Fuentes NP - Discharge Diagnosis/Problem(s) (1) Afib SNOMED Code(s): 52079132 ICD Code: I48.91 - UNSPECIFIED ATRIAL FIBRILLATION Status: Acute (2) Diverticulitis SNOMED Code(s): 596308680 ICD Code: K57.92 - DVTRCLI OF INTEST, PART UNSP, W/O PERF OR ABSCESS W/O BLEED Status: Acute (3) Abdominal pain SNOMED Code(s): 55787156 ICD Code: R10.9 - UNSPECIFIED ABDOMINAL PAIN Status: Acute Qualifiers: Abdominal location: right upper quadrant Qualified Code(s): R10.11 - Right upper quadrant pain - Patient Summary/Data Consults: Consultations 12/30/19 16:16 Consult to Physician [CONS] Routine - Discharge Plan *PRESCRIPTION DRUG MONITORING PROGRAM REVIEWED*: No *COPY OF PRESCRIPTION DRUG MONITORING REPORT IN PATIENT GRICELDA: No Prescriptions/Med Rec: Ciprofloxacin HCl [Cipro] 500 mg PO Q12H #28 tablet metroNIDAZOLE [Metronidazole] 500 mg PO Q8H #42 tablet Metoprolol Succinate [Toprol XL] 12.5 mg PO DAILY #30 tab.er Acetaminophen [Tylenol Extra Strength] 500 mg PO Q4H PRN #60 tablet PRN Reason: Pain Home Medications: Home Meds Calcium Carbonate/Vitamin D3 [Calcium 600 + Vit D Tablet] 1 tab PO BID 03/25/19 [History] Cyanocobalamin (Vitamin B12) [Vitamin B12] 1 tab PO DAILY 03/25/19 [History] Zolpidem Tartrate [Zolpidem Tartrate ER] 6.25 mg PO BEDTIME PRN 12/31/19 [History] Acetaminophen [Tylenol Extra Strength] 500 mg PO Q4H PRN #60 tablet 01/01/20 [Rx] Ciprofloxacin HCl [Cipro] 500 mg PO Q12H #28 tablet 01/01/20 [Rx] Metoprolol Succinate [Toprol XL] 12.5 mg PO DAILY #30 tab.er 01/01/20 [Rx] metroNIDAZOLE [Metronidazole] 500 mg PO Q8H #42 tablet 01/01/20 [Rx] Patient Handouts: Metoprolol tablets, Diverticulitis, Acetaminophen tablets or caplets, Ciprofloxacin tablets, Atrial Fibrillation, Metronidazole tablets or capsules Referrals: Darnell Gallardo MD [Physician] - 01/13/20 3:00 pm (we will inform you of your appointment) Maya Gutierres MD [Physician] - 01/15/20 9:00 am (follow-up in 2 weeks.) Marlys Fuentes NP [Primary Care Provider] - 01/10/20 4:00 pm - Discharge Summary/Plan Comment DC Time >30 min.: No - Patient Data Vitals - Most Recent: Last Vital Signs Temp 36.7 C 01/01/20 12:00 Pulse 72 01/01/20 12:00 Resp 16 01/01/20 12:00 BP 120/40 L 01/01/20 12:00 Pulse Ox 100 01/01/20 12:00 Weight - Most Recent: 77.02 kg I&O - Last 24 hours: Intake & Output 12/31/19 01/01/20 01/01/20 22:59 06:59 14:59 Intake Total 1845 Output Total 750 Balance 1095 Lab Results - Last 24 hrs: Laboratory Results - last 24 hr 01/01/20 01/01/20 Range/Units 05:10 05:10 WBC 7.84 (4.0-11.0) K/uL RBC 3.24 L (4.30-5.90) M/uL Hgb 9.5 L (12.0-16.0) g/dL Hct 28.7 L (36.0-46.0) % MCV 88.6 (80.0-98.0) fL MCH 29.3 (27.0-32.0) pg MCHC 33.1 (31.0-37.0) g/dL RDW Std Deviation 40.9 (28.0-62.0) fl RDW Coeff of Daryn 13 (11.0-15.0) % Plt Count 270 (150-400) K/uL MPV 8.20 (7.40-12.00) fL Neut % (Auto) 71.5 (48.0-80.0) % Lymph % (Auto) 19.9 (16.0-40.0) % [place] % (Auto) 6.8 (0.0-15.0) % Eos % (Auto) 1.4 (0.0-7.0) % Baso % (Auto) 0.4 (0.0-1.5) % Neut # (Auto) 5.6 (1.4-5.7) K/uL Lymph # (Auto) 1.6 (0.6-2.4) K/uL [place] # (Auto) 0.5 (0.0-0.8) K/uL Eos # (Auto) 0.1 (0.0-0.7) K/uL Baso # (Auto) 0.0 (0.0-0.1) K/uL Nucleated RBC % 0.0 /100WBC Nucleated RBCs # 0 K/uL Sodium 141 (136-145) mmol/L Potassium 3.1 L (3.5-5.1) mmol/L Chloride 110 H (98-107) mmol/L Carbon Dioxide 20.6 L (21.0-32.0) mmol/L BUN 6 L (7.0-18.0) mg/dL Creatinine 0.6 (0.6-1.0) mg/dL Est Cr Clr Drug Dosing 92.77 mL/min Estimated GFR (MDRD) > 60.0 ml/min Glucose 77 (74-106) mg/dL Calcium 7.1 L (8.5-10.1) mg/dL Total Bilirubin 0.3 (0.2-1.0) mg/dL AST 9 L (15-37) IU/L ALT 17 (14-63) IU/L Alkaline Phosphatase 59 (46-116) U/L Total Protein 5.3 L (6.4-8.2) g/dL Albumin 2.3 L (3.4-5.0) g/dL Globulin 3.0 (2.6-4.0) g/dL Albumin/Globulin Ratio 0.8 L (0.9-1.6) KELLY Results - Last 24 hrs: Microbiology 12/30/19 16:49 Aerobic Blood Culture - Preliminary Blood - Venous - Lab Draw NO GROWTH AFTER 1 DAY Anaerobic Blood Culture - Preliminary NO GROWTH AFTER 1 DAY 12/30/19 16:40 Aerobic Blood Culture - Preliminary Blood - Venous NO GROWTH AFTER 1 DAY Anaerobic Blood Culture - Preliminary NO GROWTH AFTER 1 DAY Med Orders - Current: Current Medications Acetaminophen (Tylenol Extra Strength) 500 mg PO Q4H PRN PRN Reason: Pain Last Admin: 12/31/19 17:22 Dose: 500 mg Documented by: Enoxaparin Sodium (Lovenox) 40 mg SUBCUT Q24H CHRISTELLE Last Admin: 01/01/20 10:44 Dose: 40 mg Documented by: Sodium Chloride (Normal Saline) 1,000 mls @ 125 mls/hr IV Q8H CHRISTELLE Last Admin: 12/31/19 21:39 Dose: 125 mls/hr Documented by: Piperacillin Sod/Tazobactam (Sod 4.5 gm/ Sodium Chloride) 100 mls @ 100 mls/hr IV Q6H [facility] Last Admin: 01/01/20 10:44 Dose: 100 mls/hr Documented by: Metoprolol Succinate (Toprol Xl) 12.5 mg PO DAILY [facility] Last Admin: 01/01/20 09:16 Dose: Not Given Documented by: Ondansetron HCl (Zofran) 4 mg IVPUSH Q4H PRN PRN Reason: Pain Last Admin: 01/01/20 00:05 Dose: 4 mg Documented by: Sodium Chloride (Saline Flush) 2.5 ml FLUSH ASDIRECTED PRN PRN Reason: Keep Vein Open Discontinued Medications Sodium Chloride (Normal Saline) 1,000 mls @ 999 mls/hr IV .Bolus ONE Stop: 12/30/19 17:52 Last Admin: 12/30/19 17:31 Dose: 999 mls/hr Documented by: Sodium Chloride (Normal Saline) 1,000 mls @ 999 mls/hr IV ONETIME ONE Stop: 12/30/19 17:53 Last Admin: 12/30/19 17:26 Dose: Not Given Documented by: Morphine Sulfate (Morphine) 2 mg IVPUSH Q2H PRN PRN Reason: Pain (severe 7-10) Stop: 12/31/19 16:17 Potassium Chloride (Potassium Chloride) 40 meq PO ONETIME ONE Stop: 01/01/20 13:59 Last Admin: 01/01/20 14:26 Dose: 40 meq Documented by:
[2020-01-01] MEDS: Sodium Chloride 0.9% 1,000 ML IV SCH (14:58)
== END 2020-01-01 14:45 | disposition home or self-care (01) | DRG 244 ==
LOC: MW.CHFP 14:42 → MW.MS 16:12
PROVIDERS: ADMIT Student in an Organized Health Care Education/Training Program; ATTEND Student in an Organized Health Care Education/Training Program
DX: K57.20 Diverticulitis of large intestine with perforation and abscess without bleeding (principal); I48.0 Paroxysmal atrial fibrillation; K59.00 Constipation, unspecified; Z20.828 Contact with and (suspected) exposure to other viral communicable diseases; I48.91 Unspecified atrial fibrillation; H54.7 Unspecified visual loss; F31.9 Bipolar disorder, unspecified; E21.3 Hyperparathyroidism, unspecified; Z90.89 Acquired absence of other organs; Z79.899 Other long term (current) drug therapy; Z98.890 Other specified postprocedural states
CPT/HCPCS: 36415; 80053; 83735; 84100; 84484; 85025; 87040; 93005; A9270-GY; J1650; J2405; J2543; J7030; J7050

== ENCOUNTER 2020-01-02 04:05 | Emergency (ER) | payer BC ==
[2020-01-02] MEDS ORDERED: Sodium Chloride 0.9% 1,000 ML IV ONE (04:19)
[2020-01-02] MEDS ORDERED: Sodium Chloride 0.9% 10 ML Syringe FLUSH PRN (04:19)
[2020-01-02] MEDS ORDERED: Sodium Chloride 0.9% 2.5 ML Syringe FLUSH PRN (04:19)
[2020-01-02] MEDS ORDERED: Ondansetron 4 MG/2 ML SDV ONE (04:34)
[2020-01-02] MEDS ORDERED: Ondansetron 4 MG/2 ML SDV IVPUSH ONE (04:35)
--- NOTE | 2020-01-02 04:57 | CR ---
INDICATION: Palpitations TECHNIQUE: Chest radiograph 1 view COMPARISON: 01/19/2018 FINDINGS: Mediastinum: The mediastinum is normal in appearance. The heart silhouette is normal in size and morphology. Lung: Both lungs are unremarkable in appearance. No sign of pleural effusion seen. No pneumothorax is identified. Bone and Soft tissue: Unremarkable for age. IMPRESSION: 1. No acute cardiopulmonary disease is seen. Dictated by: Cliff Guy MD @ 01/02/2020 04:55:10 (Electronically Signed)
[2020-01-02 05:05] LABS: BLOOD UREA NITROGEN,BUN 9 mg/dL (7.0-18.0); CARBON DIOXIDE,CO2 23.1 mmol/L (21.0-32.0); CHLORIDE,CL 109 mmol/L (98-107); GLUCOSE RANDOM 111 mg/dL (74-106); SODIUM,NA 141 mmol/L (136-145)
[2020-01-02] MEDS ORDERED: Potassium Chloride 20 MEQ Tab.ER PO ONE (05:24)
--- NOTE | 2020-01-02 05:30 | EDM.PDOC ---
ED HPI GENERAL MEDICAL PROBLEM - General Chief Complaint: Cardiovascular Problem Stated Complaint: HEART RACING Time Seen by Provider: 01/02/20 04:14 - History of Present Illness INITIAL COMMENTS - FREE TEXT/NARRATIVE: HISTORY AND PHYSICAL: History of present illness: This is a 64-year-old female who was recently discharged from the hospital yesterday secondary to admission for diverticulitis with an abscess who presents ER today secondary to palpitations and feeling that her heart was racing. Patient reports that at 2 in the morning she woke up and felt her heart rate was 120 and therefore took a lorazepam 12.5 mg p.o. Patient denies any other symptomatology. Patient has any fevers, shakes, chills, nausea, vomiting, dysuria, frequency, urgency. Patient reports that she is currently on ciprofloxacin and Flagyl for diverticulitis. Patient does have some increased loose stools. Patient reports that she does have a history of atrial fibrillation in the past that was related to history of parathyroid tumor. Pat ient reports that once her prior thyroid tumor was fixed she was back in normal sinus rhythm and has been in normal sinus rhythm for quite some time. Patient denies any history of hypertension, diabetes, liver, lung, kidney problems. Patient denies any coronary artery disease. Patient denies any chest pain or shortness of breath. Patient is a pain rating down her jaws arm or back. Review of systems: As per history of present illness and below otherwise all systems reviewed and negative. Past medical history: As per history of present illness and as reviewed below otherwise noncontribut ory. Surgical history: As per history of present illness and as reviewed below otherwise noncontributory. Social history: No reported history of drug or alcohol abuse. Family history: As per history of present illness and as reviewed below otherwise noncontributory. Physical exam: HEENT: Atraumatic, normocephalic, pupils reactive, negative for conjunctival pallor or scleral icterus, mucous membranes moist, throat clear, neck supple, nontender, trachea midline. Lungs: Clear to auscultation, breath sounds equal bilaterally, chest nontender. Heart: S1S2, regular, negative for clicks, rubs, or JVD. Abdomen: Soft, nondistended, nontender. Negative for masses or hepatosplenomegaly. Negative for costovertebral tenderness. Pelvis: Stable nontender. Genitourinary: Deferred. Rectal: Deferred. Extremities: Atraumatic, negative for cords or calf pain. Neurovascular unremarkable. Neuro: Awake, alert, oriented. Cranial nerves II through XII unremarkable. Cerebellum unremarkable. Motor and sensory unremarkable throughout. Exam nonfocal. Diagnostics: EKG: Sinus tachycardia at 102 with multiple PACs. Nonspecific ST-T wave abnormalities Normal axis No evidence of ST elevation MS As interpreted by ER physician: Gordon Chest Xray: Normal cardiac silhouette No infiltrates or effusions identified. No PTX No evidence of acute bony fracture. As interpreted by ER MD: Gordon Patient's labs are significant for potassium of 3.0. Therapeutics: Patient was given 1 L of normal saline solution wide open, Zofran 4 mg IV. Assessment and plan: This is a 64-year-old female who presents to the ER today secondary to palpitations and rapid heart rate at home. Patient's blood pressure she reports has been elevated as well. Etiology of patient's symptoms are likely related to her recent infection and current diagnosis of diverticulitis with abscess. Patient likely is somewhat dehydrated with a potassium level of 3.0. I have discussed with the patient that the remainder of her labs including her troponin, TSH, EKG, chest x-ray are all within normal limits. At this time, I do not feel that the patient meets inpatient level of care and will be stable to be discharged to home. Patient will be given supplemental potassium and instructions to continue her antibiotics increase fluid intake and to follow-up with her doctor in the next 2 to 3 days. Reassessment at the time of disposition demonstrates that the patient is in no acute distress. The patient has remained stable throughout the entire ED visit and is without objective evidence for acute process requiring urgent intervention or hospitalization. The patient is stable for discharge, counseling is provided as documented above, discussed symptomatic treatment and specific conditions for return. I have spoken with the patient/caregiver and discussed todays findings, in addition to providing specific details for the plan of care. Questions are answered and there is agreement with the plan. Definitive disposition and diagnosis as appropriate pending reevaluation and review of above. - Related Data Allergies Allergy/AdvReac Type Severity Reaction Status Date / Time No Known Allergies Allergy Verified 01/02/20 04:43 Home Meds: Home Meds Calcium Carbonate/Vitamin D3 [Calcium 600 + Vit D Tablet] 1 tab PO BID 03/25/19 [History] Cyanocobalamin (Vitamin B12) [Vitamin B12] 1 tab PO DAILY 03/25/19 [History] Zolpidem Tartrate [Zolpidem Tartrate ER] 6.25 mg PO BEDTIME PRN 12/31/19 [History] Acetaminophen [Tylenol Extra Strength] 500 mg PO Q4H PRN #60 tablet 01/01/20 [Rx] Ciprofloxacin HCl [Cipro] 500 mg PO Q12H #28 tablet 01/01/20 [Rx] Metoprolol Succinate [Toprol XL] 12.5 mg PO DAILY #30 tab.er 01/01/20 [Rx] metroNIDAZOLE [Metronidazole] 500 mg PO Q8H #42 tablet 01/01/20 [Rx] Potassium Chloride 20 meq PO BID 5 Days #10 packet 01/02/20 [Rx] Past Medical History - Past Health History Medical/Surgical History: Denies Medical/Surgical History HEENT History: Reports: Other (See Below) Other HEENT History: wears glasses Cardiovascular History: Reports: Other (See Below) Other Cardiovascular History: hx proximal A-fib, resolved after parathyroidectomy. H/o meningeoma Respiratory History: Reports: None Gastrointestinal History: Reports: Cholelithiasis Genitourinary History: Reports: None DISTRICT ADMINISTRATIVE ASSISTANT History: Reports: None Musculoskeletal History: Reports: Fracture Other Musculoskeletal History: hx fx tib/fib Neurological History: Reports: Headaches, Chronic, Other (See Below) Other Neuro History: Hx of meningioma Psychiatric History: Reports: Bipolar Endocrine/Metabolic History: Reports: Hyperparathyroidism Hematologic History: Reports: None Immunologic History: Reports: None Oncologic (Cancer) History: Reports: None Dermatologic History: Reports: None - Infectious Disease History Infectious Disease History: Reports: Chicken Pox, Measles, Mumps, Rubella - Past Surgical History Head Surgeries/Procedures: Reports: Craniotomy HEENT Surgical History: Reports: Adenoidectomy, Oral Surgery, Tonsillectomy Cardiovascular Surgical History: Reports: None Respiratory Surgical History: Reports: None GI Surgical History: Reports: Cholecystectomy, Colonoscopy Female Surgical History: Reports: None Endocrine Surgical History: Reports: Parathyroidectomy Other Neurological Surgeries/Procedures: craniotomy for meninigioma Musculoskeletal Surgical History: Reports: None Dermatological Surgical History: Reports: None Social & Family History - Family History Family Medical History: Noncontributory - Tobacco Use Smoking Status *Q: Never Smoker - Caffeine Use Caffeine Use: Reports: None Caffeine Use Comment: 1 cup of coffee a day. Tea seldom. - Recreational Drug Use Recreational Drug Use: No ED ROS GENERAL - Review of Systems Review Of Systems: See Below ED EXAM, GENERAL - Physical Exam Exam: See Below Course - Vital Signs Last Recorded V/S: Last Vital Signs Temp 97.7 F 01/02/20 05:21 Pulse 99 01/02/20 05:21 Resp 22 H 01/02/20 05:21 BP 152/91 H 01/02/20 05:21 Pulse Ox 99 01/02/20 05:21 - Orders/Labs/Meds Orders: Active Orders 24 hr Category Date Time Status Cardiac Monitoring [RC] . DIRECTED Care 01/02/20 04:19 Active EKG Documentation Completion [RC] AM Care 01/02/20 04:19 Active Pulse Oximetry [RC] ASDIRECTED Care 01/02/20 04:19 Active Potassium Chloride [Klor-Con M20] Med 01/02/20 05:24 Once 40 meq PO ONETIME ONE Sodium Chloride 0.9% [Saline Flush] Med 01/02/20 04:19 Active 10 ml FLUSH ASDIRECTED PRN Sodium Chloride 0.9% [Saline Flush] Med 01/02/20 04:19 Active 2.5 ml FLUSH ASDIRECTED PRN Saline Lock Insert [OM.PC] Stat Oth 01/02/20 04:20 Ordered Medication Orders Sodium Chloride (Saline Flush) 10 ml FLUSH ASDIRECTED PRN PRN Reason: Keep Vein Open Sodium Chloride (Saline Flush) 2.5 ml FLUSH ASDIRECTED PRN PRN Reason: Keep Vein Open Labs: Laboratory Tests 01/02/20 01/02/20 01/02/20 Range/Units 04:30 04:30 04:30 WBC 6.62 (4.0-11.0) K/uL RBC 3.79 L (4.30-5.90) M/uL Hgb 10.8 L (12.0-16.0) g/dL Hct 33.2 L (36.0-46.0) % MCV 87.6 (80.0-98.0) fL MCH 28.5 (27.0-32.0) pg MCHC 32.5 (31.0-37.0) g/dL RDW Std Deviation 40.5 (28.0-62.0) fl RDW Coeff of Daryn 13 (11.0-15.0) % Plt Count 367 (150-400) K/uL MPV 8.60 (7.40-12.00) fL Neut % (Auto) 65.1 (48.0-80.0) % Lymph % (Auto) 24.9 (16.0-40.0) % [place] % (Auto) 5.4 (0.0-15.0) % Eos % (Auto) 4.1 (0.0-7.0) % Baso % (Auto) 0.5 (0.0-1.5) % Neut # (Auto) 4.3 (1.4-5.7) K/uL Lymph # (Auto) 1.7 (0.6-2.4) K/uL [place] # (Auto) 0.4 (0.0-0.8) K/uL Eos # (Auto) 0.3 (0.0-0.7) K/uL Baso # (Auto) 0.0 (0.0-0.1) K/uL Nucleated RBC % 0.0 /100WBC Nucleated RBCs # 0 K/uL INR 1.09 Sodium 141 (136-145) mmol/L Potassium 3.0 L (3.5-5.1) mmol/L Chloride 109 H (98-107) mmol/L Carbon Dioxide 23.1 (21.0-32.0) mmol/L BUN 9 (7.0-18.0) mg/dL Creatinine 0.8 (0.6-1.0) mg/dL Est Cr Clr Drug Dosing TNP Estimated GFR (MDRD) > 60.0 ml/min Glucose 111 H (74-106) mg/dL Calcium 8.6 (8.5-10.1) mg/dL Magnesium 1.9 (1.8-2.4) mg/dL Total Bilirubin 0.1 L (0.2-1.0) mg/dL AST 17 (15-37) IU/L ALT 20 (14-63) IU/L Alkaline Phosphatase 69 (46-116) U/L Troponin I < 0.050 (0.000-0.056) ng/mL Total Protein 6.6 (6.4-8.2) g/dL Albumin 2.9 L (3.4-5.0) g/dL Globulin 3.7 (2.6-4.0) g/dL Albumin/Globulin Ratio 0.8 L (0.9-1.6) TSH 3rd Generation 2.70 (0.36-3.74) uIU/mL Meds: Medications Generic Name Dose Route Start Last Admin Trade Name Freq PRN Reason Stop Dose Admin Sodium Chloride 10 ml 01/02/20 04:19 Saline Flush FLUSH ASDIRECTED PRN Keep Vein Open Sodium Chloride 2.5 ml 01/02/20 04:19 Saline Flush FLUSH ASDIRECTED PRN Keep Vein Open Discontinued Medications Generic Name Dose Route Start Last Admin Trade Name Freq PRN Reason Stop Dose Admin Sodium Chloride 1,000 mls @ 999 mls/hr 01/02/20 04:19 01/02/20 04:29 Normal Saline IV 01/02/20 05:19 999 mls/hr .Bolus ONE Administration Ondansetron HCl 4 mg 01/02/20 04:35 01/02/20 04:38 Zofran IVPUSH 01/02/20 04:36 4 mg ONETIME ONE Administration Ondansetron HCl Confirm 01/02/20 04:34 01/02/20 05:21 Zofran Administered 01/02/20 04:35 Not Given Dose 4 mg .ROUTE .STK-MED ONE Departure - Departure Time of Disposition: 05:30 Disposition: Home, Self-Care 01 Condition: Good Clinical Impression: Palpitations, Hypokalemia, PAC (premature atrial contraction) Instructions: Premature Atrial Contraction, Palpitations, Hypokalemia Referrals: Marlys Fuentes MAILING MANAGER [Primary Care Provider] - Additional Instructions: Your seen and evaluated in the ER today for palpitations and elevated heart rate/blood pressure. The symptoms are highly likely related to current infection that your body is fighting as well as dehydration and hypokalemia. You will be given supplemental potassium here in the ED and a prescription for supplements of potassium to take over the next 5 days. Please continue take your antibiotics, drink plenty of liquids and get plenty of rest. The following information is given to patients seen in the emergency department who are being discharged to home. This information is to outline your options for follow-up care. We provide all patients seen in our emergency department with a follow-up referral. The need for follow-up, as well as the timing and circumstances, are variable depending upon the specifics of your emergency department visit. If you don't have a primary care physician on staff, we will provide you with a referral. We always advise you to contact your personal physician following an emergency department visit to inform them of the circumstance of the visit and for follow-up with them and/or the need for any referrals to a consulting specialist. The emergency department will also refer you to a specialist when appropriate. This referral assures that you have the opportunity for follow-up care with a specialist. All of these measure are taken in an effort to provide you with optimal care, which includes your follow-up. Under all circumstances we always encourage you to contact your private physician who remains a resource for coordinating your care. When calling for follow-up care, please make the office aware that this follow-up is from your recent emergency room visit. If for any reason you are refused follow-up, please contact the [facility] Emergency Department at and asked to speak to the emergency department charge nurse. Sepsis Event Note (ED) - Evaluation Sepsis Screening Result: No Definite Risk - Focused Exam Vital Signs: Vital Signs Temp Temp Pulse Resp BP Pulse Ox 01/02/20 05:21 97.7 F 99 22 H 152/91 H 99 01/02/20 04:51 88 133/62 97 01/02/20 04:28 92 18 144/83 H 100 01/02/20 04:26 97.7 F 106 H 18 153/81 H 96 - My Orders Last 24 Hours: My Active Orders 01/02/20 04:19 Cardiac Monitoring [RC] . DIRECTED EKG Documentation Completion [RC] AM Pulse Oximetry [RC] ASDIRECTED Sodium Chloride 0.9% [Saline Flush] 10 ml FLUSH ASDIRECTED PRN Sodium Chloride 0.9% [Saline Flush] 2.5 ml FLUSH ASDIRECTED PRN 01/02/20 04:20 Saline Lock Insert [OM.PC] Stat 01/02/20 05:24 Potassium Chloride [Klor-Con M20] 40 meq PO ONETIME ONE - Assessment/Plan Last 24 Hours: My Active Orders 01/02/20 04:19 Cardiac Monitoring [RC] . DIRECTED EKG Documentation Completion [RC] AM Pulse Oximetry [RC] ASDIRECTED Sodium Chloride 0.9% [Saline Flush] 10 ml FLUSH ASDIRECTED PRN Sodium Chloride 0.9% [Saline Flush] 2.5 ml FLUSH ASDIRECTED PRN 01/02/20 04:20 Saline Lock Insert [OM.PC] Stat 01/02/20 05:24 Potassium Chloride [Klor-Con M20] 40 meq PO ONETIME ONE
[2020-01-02 06:04] VITALS: BP 141/70; PULSE 85
== END 2020-01-02 06:05 | disposition home or self-care (01) ==
LOC: MW.ED 04:05
DX: I49.1 Atrial premature depolarization (principal); E87.6 Hypokalemia; I48.91 Unspecified atrial fibrillation; Z90.49 Acquired absence of other specified parts of digestive tract; Z79.899 Other long term (current) drug therapy
CPT/HCPCS: 36415; 71045; 80053; 83735; 84443; 84484; 85025; 85610; 93005; 96361; 96374; 99285; A9270; J2405; J7030; 99284

== ENCOUNTER 2021-10-28 06:32 | Day surgery (SDC) | payer BC ==
[~2021-10-28 06:32] MED LIST changes: -Dexamethasone 4 MG/ML 5 ML MDV ONE; +Lactated Ringers 1,000 ML IV SCH; -Lidocaine 2% 5 ML SDV ONE; -Meperidine PF 25 MG/ML Syringe IVPUSH PRN; -Metoclopramide 10 MG/2 ML SDV ONE; -Midazolam 1 MG/ML 2 ML SDV ONE; -Propofol 200 MG/20 ML SDV ONE; -Rocuronium 100 MG/10 ML Syringe ONE; +Sodium Chloride 0.9% 10 ML Syringe FLUSH PRN; +Sodium Chloride 0.9% 2.5 ML Syringe FLUSH PRN; +Sodium Chloride 0.9% 20 ML SDV IV PRN; -ceFAZolin 2 GM in Premix Bag 1 BAG IV ONE; -ceFAZolin/Dextrose,Iso-Osmotic 2 GM/50 ML Duplex Bag IV ONE; -fentaNYL 100 MCG/2 ML SDV IVPUSH PRN; -fentaNYL 100 MCG/2 ML SDV ONE
[2021-10-28] MEDS ORDERED: Propofol 200 MG/20 ML SDV ONE (07:18)
[2021-10-28] MEDS ORDERED: fentaNYL 100 MCG/2 ML SDV ONE (07:18)
[2021-10-28 08:59] VITALS: BP 102/52; PULSE 55
== END 2021-10-28 09:09 | disposition home or self-care (01) ==
LOC: MW.SDS 06:32
PROVIDERS: ATTEND Surgery
DX: K57.30 Diverticulosis of large intestine without perforation or abscess without bleeding (principal); E78.00 Pure hypercholesterolemia, unspecified; F31.9 Bipolar disorder, unspecified; E83.52 Hypercalcemia; E87.6 Hypokalemia; D32.9 Benign neoplasm of meninges, unspecified; I48.0 Paroxysmal atrial fibrillation; E88.9 Metabolic disorder, unspecified; F19.90 Other psychoactive substance use, unspecified, uncomplicated; F10.20 Alcohol dependence, uncomplicated; E89.0 Postprocedural hypothyroidism; Z79.899 Other long term (current) drug therapy; Z98.890 Other specified postprocedural states; Z90.49 Acquired absence of other specified parts of digestive tract
CPT/HCPCS: 45378; J2704; J3010; J7120; 00812

== ENCOUNTER 2022-12-27 10:53 | Emergency (ER) | payer BC, MEDICARE ==
[2022-12-27] MEDS ORDERED: Sodium Chloride 0.9% 1,000 ML IV ONE (11:08)
[2022-12-27] MEDS ORDERED: Metoprolol Tartrate 5 MG/5 ML SDV IVPUSH ONE (11:09)
[2022-12-27] MEDS ORDERED: Metoprolol Tartrate 50 MG Tab PO ONE (11:10)
[2022-12-27 11:26] LABS: BASOPHILS PERCENT AUTO 0.6 % (0.0-1.5); EOSINOPHILS ABSOLUTE AUTO 0.3 K/uL (0.0-0.7); EOSINOPHILS PERCENT AUTO 5.2 % (0.0-7.0); HEMATOCRIT 42.3 % (36.0-46.0); HEMOGLOBIN 14.3 g/dL (12.0-16.0); LYMPHOCYTES ABSOLUTE AUTO 1.6 K/uL (0.6-2.4); LYMPHOCYTES PERCENT AUTO 25.2 % (16.0-40.0); MEAN CORPUSCULAR HEMOGLOBIN 29.5 pg (27.0-32.0); MEAN CORPUSCULAR HGB CONC 33.8 g/dL (31.0-37.0); MEAN CORPUSCULAR VOLUME 87.2 fL (80.0-98.0); MONOCYTES ABSOLUTE AUTO 0.4 K/uL (0.0-0.8); MONOCYTES PERCENT AUTO 6.3 % (0.0-15.0); NEUTROPHILS PERCENT AUTO 62.7 % (48.0-80.0); NRBC ABSOLUTE 0 K/uL; PLATELET COUNT,PLT 280 K/uL (150-400); RED BLOOD CELL COUNT 4.85 M/uL (4.30-5.90); WHITE BLOOD CELL COUNT,WBC 6.36 K/uL (4.0-11.0)
[2022-12-27 11:46] LABS: D-DIMER QUANTITATIVE 0.32 mg/L FEU (0.00-0.50); PTT,PARTIAL THROMBOPLSTIN TIME 28.5 SEC (23.9-30.7)
[2022-12-27 12:03] LABS: A/G RATIO 1.1 (0.9-1.6); ALBUMIN 3.9 g/dL (3.4-5.0); BILIRUBIN TOTAL 0.4 mg/dL (0.2-1.0); CALCIUM 9.7 mg/dL (8.5-10.1); CREATININE 0.8 mg/dL (0.6-1.0); EST CRCL DRUG DOSING (CG) 68.18 mL/min; PROTEIN TOTAL,TP 7.6 g/dL (6.4-8.2); TSH ULTRASENSITIVE 1.61 uIU/mL (0.36-3.74)
[2022-12-27 12:55] VITALS: BP 155/81
[2022-12-27 12:56] VITALS: PULSE 77
== END 2022-12-27 12:53 | disposition home or self-care (01) ==
LOC: MW.ED 10:53
DX: R00.2 Palpitations (principal); Z79.899 Other long term (current) drug therapy
CPT/HCPCS: 36415; 80053; 83735; 83880; 84443; 84484; 85025; 85379; 85610; 85730; 87635; 93005; 96361; 96374; 99285; A9270; J3490; J7030; 93010; 99284; U0002

== ENCOUNTER 2023-05-22 21:10 | Emergency (ER) | payer BC, MEDICARE ==
[2023-05-22 21:42] LABS: BASOPHILS ABSOLUTE AUTO 0.06 K/uL (0.00-0.20); BASOPHILS PERCENT AUTO 0.4 % (0.0-1.0); EOSINOPHILS ABSOLUTE AUTO 0.08 K/uL (0.00-0.45); EOSINOPHILS PERCENT AUTO 0.6 % (0.0-6.0); HEMATOCRIT 38.1 % (37.0-47.0); IMMATURE GRAN ABSOLUTE AUTO 0.04 K/uL (0.00-0.05); IMMATURE GRAN PERCENT AUTO 0.3 % (0.0-0.4); LYMPHOCYTES ABSOLUTE AUTO 0.92 K/uL (1.00-4.80); LYMPHOCYTES PERCENT AUTO 6.8 % (24.0-44.0); MEAN CORPUSCULAR HGB CONC 34.1 g/dL (32.0-36.0); MEAN CORPUSCULAR VOLUME 84.9 fL (83.0-99.0); MEAN PLATELET VOLUME 8.1 fL (9.4-12.3); MONOCYTES ABSOLUTE AUTO 0.77 K/uL (0.00-0.80); MONOCYTES PERCENT AUTO 5.7 % (0.0-8.0); NEUTROPHILS ABSOLUTE AUTO 11.59 K/uL (1.80-7.70); NEUTROPHILS PERCENT AUTO 86.2 % (41.0-71.0); PLATELET COUNT,PLT 247 K/uL (150-400); RED BLOOD CELL COUNT 4.49 M/uL (4.10-5.30); WHITE BLOOD CELL COUNT,WBC 13.46 K/uL (3.9-11.3)
[2023-05-22] MEDS: Sodium Chloride 0.9% 1,000 ML IV ONE (21:54)
[2023-05-22] MEDS: Metoprolol Tartrate 5 MG/5 ML SDV IVPUSH ONE (21:55)
[2023-05-22] MEDS: Morphine 4 MG/ML Syringe IVPUSH ONE (21:55)
[2023-05-22] MEDS: Ondansetron 4 MG/2 ML SDV IVPUSH ONE (21:55)
[2023-05-22 22:07] LABS: ALANINE AMINOTRANSFERASE,ALT 24 IU/L (14-63); ALBUMIN 3.5 g/dL (3.4-5.0); ALKALINE PHOSPHATASE 65 U/L (46-116); ASPARTATE AMNIOTRANSFERASE,AST 21 IU/L (15-37); BILIRUBIN TOTAL 0.9 mg/dL (0.2-1.0); BLOOD UREA NITROGEN,BUN 12 mg/dL (7.0-18.0); CARBON DIOXIDE,CO2 22.3 mmol/L (21.0-32.0); CHLORIDE,CL 102 mmol/L (98-107); CREATININE 0.8 mg/dL (0.6-1.0); GLUCOSE RANDOM 129 mg/dL (74-106); LIPASE 30 U/L (16-77); MAGNESIUM 1.9 mg/dL (1.8-2.4); POTASSIUM,K 3.7 mmol/L (3.5-5.1); PROTEIN TOTAL,TP 6.9 g/dL (6.4-8.2); SODIUM,NA 136 mmol/L (136-145)
[2023-05-22 22:09] LABS: LACTIC ACID 0.9 mmol/L (0.4-2.0)
[2023-05-22 22:13] LABS: ESTIMATED GFR 82 mL/min (>60)
[2023-05-22 22:35] LABS: CORONAVIRUS COVID-19 NAA NEGATIVE (NEGATIVE); INFLUENZA A NAA NEGATIVE (NEGATIVE); INFLUENZA B NAA NEGATIVE (NEGATIVE)
[2023-05-22 22:36] VITALS: PULSE 90
[2023-05-22] MEDS: Ciprofloxacin in D5W 400 MG in Premix Bag 1 BAG IV SCH (22:59)
[2023-05-22] MEDS: metroNIDAZOLE/Normal Saline 500 MG in Premix Bag 1 BAG IV ONE (22:59)
[2023-05-23 00:15] VITALS: BP 122/61
== END 2023-05-23 00:13 | disposition home or self-care (01) ==
LOC: MW.ED 21:10
DX: R10.11 Right upper quadrant pain (principal)
CPT/HCPCS: 0240U; 36415; 74018; 80053; 83605; 83690; 83735; 84484; 85025; 93005; 96374; 96375; 99284; J0744; J1836; J2270; J2405; J3490; J7030; 93010